=== PATIENT | female | born 1950 | race Caucasian/White ===

== ENCOUNTER → 2017-10-02 13:33 | Outpatient (CLI) | payer MEDICARE, OTHER, SELFPAY | PROVIDERS: Family Provider Internal Medicine; PCP Internal Medicine; Visit Provider Nurse Practitioner Adult Health | DX: D64.9 Anemia, unspecified (principal) | CPT/HCPCS: 36415; 86850; 86900; 86920; 86922 ==

== ENCOUNTER → 2017-10-03 08:26 | Outpatient (CLI) | payer MEDICARE, OTHER, SELFPAY ==
[2017-10-03] VITALS (7 sets, daily range): BP systolic 120–148; BP diastolic 53–68; PULSE 88–94; RESP 16–18; TEMP 36.8–37.4; O2SAT 92–97; BMI 42.0
[2017-10-03] MEDS: Furosemide 20 MG/2 ML VIAL IV (11:59)
== END ==
PROVIDERS: Family Provider Internal Medicine; PCP Internal Medicine; Visit Provider Family Medicine
DX: D64.9 Anemia, unspecified (principal)
CPT/HCPCS: 36415; 36430; 86850; 86900; 86920; 86922; P9016

== ENCOUNTER 2017-11-04 03:02 | Emergency (ER) | payer MEDICARE, OTHER, SELFPAY ==
[2017-11-04 03:03] VITALS: BP 127/59; PULSE 126; RESP 19; TEMP 36.9; O2SAT 94; BMI 28.5
--- NOTE | 2017-11-04 03:24 | ED.VISSUMM ---
- ER Visit Summary Date of Service: 11/04/17 Chief Complaint: Nausea and vomiting. I think I have a UTI History of Present Illness: The patient is a 67 F with a very extensive past medical history including cardiomyopathy with an EF of 20%, insulin-dependent diabetes, CAD with NC and CHF, renal insufficiency anticoagulated secondary to prior DVT. Patient states she has had nausea and vomiting since Saturday evening. No diarrhea. She is having dysuria and thinks she has having a UTI. She was recently in assisted living with her who in the last several weeks. She was just discharged back to her home on Saturday. She was on antibiotic therapy which they stopped. She denies fever. She denies diarrhea or melena. She does have a chronic history of anemia prior transfusions. Physical Examination: Well-appearing older female. Vital signs are stable afebrile. She does not look septic or toxic. She is currently in no acute distress. H EENT exam unremarkable. Neck nontender no lymphadenopathy. Lungs clear to auscultation bilaterally. Heart regular rhythm no murmur. Rate about 100. Abdomen is soft and nontender. Normal bowel sounds. No peritoneal signs. Extremities she has a footdrop on the left with the left lower leg and foot brace. She has a postop shoe on the right foot. Neurologically she is awake and alert. Answering questions and following commands. She is the foot drop on the left lower extremity otherwise is moving the extremities normally. 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 Test Results: CBC showed a chronic anemia with an H&H of 1135. Normal white count. No bands. Chemistries show potassium 3.4. Normal gap. Glucose was only 35 it was rechecked here BG T was 56 the initial one in the ER was 114. She was given something to drink orange juice. Is feeling better. We will recheck and she will be given half amp of D50. She has chronic renal insufficiency her creatinine is 1.68. She is on Coumadin her INR is 5.2. She and I discussed that. Urinalysis shows 10-25 white cells positive nitrates no reds no bacteria culture was sent this will be treated as a UTI. Emergency Department Course and Treatment: Patient will be given IV Zofran and limited IV fluids. P.o. fluid challenge. Screening labs along with urinalysis of obtained. Treatment Plan: Is doing well repeat exam at 04 46. She denied discussed all of her test results. She will watch her blood sugar very closely. Prior to discharge we will recheck a blood sugar and give her half an amp of D50 IV. She also be started on Keflex 4 times a day for her UTI for 10 days. Urine culture was sent. I can be followed up by her primary care physician's office. And she will be given a Zofran home pack and prescription for nausea as needed. She knows to hold her Coumadin the next 2 days have it rechecked on Saturday and restarted depending on her level. Disposition: Discharge Impression: Acute nausea and vomiting Dysuria secondary to UTI Supratherapeutic anticoagulation with an INR of 5.2 History of cardiomyopathy, status post CABG, cardiomyopathy History of insulin diabetes Acute on chronic renal insufficiency This note was generated with [employer] dictation software. It may contain incorrect words, spelling, and punctuation that were not noted in review of the chart prior to signing ED Disposition - Plan for ED Patient: Chief Complaint: Nausea/Vomiting Referrals: Laura Calvillo MD [Primary Care Provider] -
[2017-11-04 03:30] LABS: Bedside Glucose 114 mg/dL (70-110)
[2017-11-04] MEDS: Ondansetron 4 MG/2 ML Vial IV (03:35)
[2017-11-04 03:38] LABS: Absolute Lymphocyte Count 0.76 X10^3/ul (0.83-4.51); Absolute Neutrophil Count 7.8 X10^3/uL (2.0-7.7); Basophil# 0.02 X10^3/uL; Basophil% 0.2 % (0-1); Eosinophil# 0.07 X10^3/uL; Eosinophils% 0.7 % (0-5); Hematocrit 35.3 % (37-47); Hemoglobin 11.3 g/dl (12.0-15.0); Lymphocyte # 0.76 X10^3/ul (4.0); Lymphocyte % 7.9 % (19-41); Mean Corpuscular Hgb 29.4 pg (27.0-32.0); Mean Corpuscular Volume 91.7 fL (81-99); Mean Platelet Vol. 11.1 fl (6.2-12.0); Monocyte# 0.94 X10^3/uL; Monocyte% 9.8 % (0-10); Neutrophil # 7.82 X10^3/uL (2.7-7.7); Neutrophil % 81.2 % (47-70); POSITIVE COUNT NO; POSITIVE DIFFERENTIAL NO; POSITIVE MORPHOLOGY NO; Platelet Count 270 K/mm3 (150-450); RBC Distribution Width CV 15.8 % (11.6-14.6); RBC Distribution Width SD 51.4 fl (35.1-43.9); Red Blood Count 3.85 M/mm3 (4.2-5.4); White Blood Count 9.6 K/mm3 (4.4-11.0)
[2017-11-04 03:43] LABS: Prothrombin Time (Protime)PT. 48.3 SECONDS (11.7-14.9)
[2017-11-04 03:45] LABS: International Normalized Ratio 5.2
--- NOTE | 2017-11-04 03:46 | ED.RN ---
lab called with critical lab results. INR 5.2. Dr. Wilhelm made aware no new orders at this time
[2017-11-04 04:04] LABS: Anion Gap 8 (5-15); BUN 32 mg/dL (7-18); Chloride 106 mmol/L (98-107); Creatinine, Serum 1.68 mg/dL (0.55-1.02); EST Glomerular Filtration Rate 32 mL/min (>60); Est Glom Filt Rate - Afr Amer 39 mL/min (>60); Estimated Creatinine Clearance 28.06 ml/min; Glucose 35 mg/dL (74-106); Potassium 3.4 mmol/L (3.5-5.1); Sodium Level 141 mmol/L (136-145)
[2017-11-04 04:08] LABS: Bacteria 0 SEEN /hpf (None Seen); Mucous, Urine 0 SEEN /hpf (<or=2+); Squamous Epithelial Cells - UA 0 SEEN /hpf (5-10)
--- NOTE | 2017-11-04 04:10 | ED.RN ---
lab called with critical lab results. Glucose 35. POC 114 per nursing staff. Order given to recheck Glucose. POC 56. Dr. Wilhelm made aware. Patient to be treated for hypoglycemia standards
[2017-11-04 04:15] LABS: Color, Urine Yellow (Yellow); Glucose, Dipstick Normal (Normal); Ketone-Dipstick 5 mg/dl (Negative); Leukocyte Esterase-Dipstick 500 /ul (Negative); Nitrite-Dipstick Positive (Negative); Occult Blood-Urine 250 /ul (Negative); Protein-Dipstick 100 mg/dl (Negative); Specific Gravity, Urine 1.015 (1.002-1.030); Urine Bilirubin Dipstick Negative (Negative); Urine Clarity Sl. Cloudy (Clear); Urine Urobilinogen Normal (Normal)
[2017-11-04 04:16] LABS: Bedside Glucose 56 mg/dL (70-110)
[2017-11-04 04:21] LABS: Red Blood Cells-Urine 0-5 SEEN /hpf (0-5); White Blood Cells 10-25 SEEN /hpf (0-5)
--- NOTE | 2017-11-04 04:52 | ED.DEP ---
ED Disposition - Plan for ED Patient: Disposition: Home or Assisted Living Chief Complaint: Nausea/Vomiting Instructions: ED Nausea Vomiting, ED UTI Cystitis Female Prescriptions: Ondansetron [Zofran Odt] 4 mg PO Q8H PRN PRN #10 tab PRN Reason: Nausea Cephalexin [Keflex] 500 mg PO Q6 #40 cap Referrals: Laura Calvillo MD [Primary Care Provider] - Additional Instructions: Zofran as needed for nausea. You may either swallow the pill or let it dissolve underneath her tongue. Keflex 1 pill 4 times a day for 10 days for the urinary tract infection. A urine culture was sent and should return in the next 48 hours. We will notify you if the culture results the antibiotic to be changed or not. Follow-up your primary care physician or return to ER feeling worse. Watch her blood sugars closely. They are running low tonight. Check it prior to going to bed this morning. Over the next 2 days better let it run slightly higher than low. Plenty of fluids and rest. Your Coumadin level is too high. It is at 5.2. We will hold your Coumadin dose both today Saturday and tomorrow Saturday. You need to have your level rechecked on Saturday morning and your doctor can restart it once they see with the new level is on Saturday.
[2017-11-04 04:56] LABS: Bedside Glucose 58 mg/dL (70-110)
[2017-11-04] MEDS: Ondansetron ODT 4 MG Tablet PO (05:02)
[2017-11-04] MEDS: Cephalexin 250 MG Capsule 500 MG PO (05:02)
[2017-11-04] MEDS: Dextrose 50%-Water 25 GM/50 ML DISP.SYRIN IV (05:02)
[2017-11-04 05:13] VITALS: BP 141/53; PULSE 118; RESP 15; O2SAT 91
== END 2017-11-04 05:20 | disposition home or self-care (01) ==
PROVIDERS: Emergency Provider Emergency Medicine; Family Provider Internal Medicine; PCP Internal Medicine
DX: N39.0 Urinary tract infection, site not specified (principal); R11.2 Nausea with vomiting, unspecified
CPT/HCPCS: 80048; 81001; 82962; 85025; 85610; 87077; 87086; 87088; 87186; 96374; 96375; 99285; J7030; J7040; P9612; A4216; J2405

== ENCOUNTER 2017-11-06 19:15 | Inpatient (IN) | payer MEDICARE, OTHER, SELFPAY ==
[2017-11-06] VITALS (7 sets, daily range): BP systolic 101–127; BP diastolic 48–68; PULSE 93–124; RESP 18–22; TEMP 37.1–38.2; O2SAT 90–97; BMI 25.7; BMI 27.7
[2017-11-06 19:36] LABS: Bedside Glucose 101 mg/dL (70-110)
[2017-11-06] MEDS: proMETHazine 25 MG/ML Syringe 6.25 MG IV (20:25)
[2017-11-06] MEDS: 0.9% Normal Saline 1,000 ML 150 ML IV (20:25)
[2017-11-06 20:40] LABS: Absolute Lymphocyte Count 0.09 X10^3/ul (0.83-4.51); Absolute Neutrophil Count 6.4 X10^3/uL (2.0-7.7); Eosinophil# 0.01 X10^3/uL; Eosinophils% 0.2 % (0-5); Lymphocyte # 0.09 X10^3/ul (4.0); Lymphocyte % 1.4 % (19-41); Mean Corp Hgb Conc 30.6 g/gl (32-36); Mean Corpuscular Hgb 28.4 pg (27.0-32.0); Mean Corpuscular Volume 92.8 fL (81-99); Mean Platelet Vol. 10.7 fl (6.2-12.0); Monocyte# 0.01 X10^3/uL; Monocyte% 0.2 % (0-10); Neutrophil # 6.38 X10^3/uL (2.7-7.7); Platelet Count 225 K/mm3 (150-450); RBC Distribution Width CV 16.2 % (11.6-14.6); RBC Distribution Width SD 54.4 fl (35.1-43.9); Red Blood Count 3.88 M/mm3 (4.2-5.4); White Blood Count 6.5 K/mm3 (4.4-11.0)
[2017-11-06 20:41] LABS: Differential Indicated SCAN CRITERIA MET; POSITIVE COUNT NO; POSITIVE DIFFERENTIAL YES; POSITIVE MORPHOLOGY NO
[2017-11-06 20:43] LABS: International Normalized Ratio 2.5; Partial Thromboplast Time 27.2 Seconds (24.1-36.2); Prothrombin Time (Protime)PT. 26.7 SECONDS (11.7-14.9)
[2017-11-06 20:50] LABS: ALB/GLOB Ratio 0.5 RATIO (0.9-2.4); AST(SGOT) 45 U/L (15-37); Alanine Aminotransfer ALT/SGPT 36 U/L (13-56); Albumin, Serum 2.8 g/dL (3.2-5.0); Alkaline Phosphatase 112 U/L (45-117); Anion Gap 8 (5-15); BUN 37 mg/dL (7-18); BUN/Creat Ratio 21.8 RATIO (10-20); Calcium,Total 8.4 mg/dL (8.5-10.1); Chloride 107 mmol/L (98-107); EST Glomerular Filtration Rate 32 mL/min (>60); Est Glom Filt Rate - Afr Amer 39 mL/min (>60); Estimated Creatinine Clearance 27.73 ml/min; Globulin 5.9 g/dL (2.2-4.2); Glucose 96 mg/dL (74-106); Potassium 3.5 mmol/L (3.5-5.1); Protein, Total 8.7 g/dL (6.4-8.2); Sodium Level 142 mmol/L (136-145)
[2017-11-06 21:00] LABS: Lactic Acid 1.8 mmol/L (0.4-2.0)
--- NOTE | 2017-11-06 21:27 | PCM.HP.STD ---
Problem List (1) Sepsis Status: Acute Qualifiers: Sepsis type: sepsis due to unspecified organism Qualified Code(s): A41.9 - Sepsis, unspecified organism (2) UTI (urinary tract infection) Status: Acute Qualifiers: Urinary tract infection type: site unspecified (3) Steroid dependent Status: Chronic (4) Cardiac arrest, cause unspecified Status: Resolved (5) PVD (peripheral vascular disease) Status: Chronic (6) Raynaud's phenomenon Status: Chronic Qualifiers: Raynaud?s-associated gangrene presence: without gangrene Qualified Code(s): I73.00 - Raynaud's syndrome without gangrene (7) Insulin dependent diabetes mellitus Status: Chronic (8) Pulmonary hypertension Status: Chronic (9) Congestive heart failure with LV diastolic dysfunction, NYHA class 3 Status: Chronic (10) Moderate mitral regurgitation by prior echocardiogram Status: Chronic Comment: on ECHO in December of 2014 (11) History of thyroidectomy Status: Chronic (12) Acquired hypothyroidism Status: Chronic Comment: S/P thyroidectomy for hyperthyroidism (13) Osteoporosis Status: Chronic Qualifiers: Osteoporosis type: unspecified Presence of current pathological fracture: unspecified Qualified Code(s): M81.0 - Age-related osteoporosis without current pathological fracture (14) Dermatomyositis Status: Chronic (15) Iliac artery thrombosis, bilateral Status: Chronic Comment: S/P BL iliac stents (16) History of hepatitis Status: Chronic Comment: does not know what type (17) Chronic renal failure, stage 3 (moderate) Status: Chronic (18) Anemia Status: Chronic Qualifiers: Anemia type: unspecified type Qualified Code(s): D64.9 - Anemia, unspecified (19) Benign essential hypertension Status: Chronic History of Present Illness Date of Admission: 11/06/17 Chief Complaint: Nausea, emesis, malaise The patient is a 67 y/o F from SNF w/ PMHx: Hypothyroidism s/p thyroidectomy (Hyperthyroidism), HTN, HLD, Chronic Normocytic Anemia requiring PRBC administration (Following w/ Dr. Bowden), Diastolic CHF, CKD stage III, Diabetes mellitus type II, PVD, OA, Steroid dependency, s/p CABG w/ prior cardiac arrest history, 09/16-09/18/16 admission for Sepsis secondary to ESBL UTI w/ notable resistance patterns (d/c to facility at that time on ertapenem per ID recommendation) who presents to the [facility] ED 11/06/17 with recent Dx in the ED UTI, UCx returned w/ Proteus UTI w/ sensitivities to only ertapenem, gentamicin, zosyn and tobramycin with discharge at that time on keflex with ongoing intractable nausea, emesis, malaise, fever and chills ongoing for the last week, worsening. She notes recent of her . She notes she is not in the SNF now since her husbands . She notes In the ED work-up included T 100.8, HR 124-->109, BP 108/51, RR 20, 90% on RA-->93% on 2.5L NC, CBC w/ WBC 6.5, Hgb 11, Plts 225 without marked shift, INR 2.5, CMP w/ BUN/Cr 37/1.70, LA 1.8, Bld Cx x 2 pending. In the ED patient administered ertapenem, phenergan, NS. Past Medical History Past Medical History (Chronic Problems): Chronic Problems Steroid dependent (Chronic) PVD (peripheral vascular disease) (Chronic) Raynaud's phenomenon (Chronic) Insulin dependent diabetes mellitus (Chronic) Pulmonary hypertension (Chronic) Congestive heart failure with LV diastolic dysfunction, NYHA class 3 (Chronic) Moderate mitral regurgitation by prior echocardiogram (Chronic) on ECHO in December of 2014 Non-healing ulcer of left foot (Chronic) left foot History of thyroidectomy (Chronic) Acquired hypothyroidism (Chronic) S/P thyroidectomy for hyperthyroidism Osteoporosis (Chronic) Pancreatic cyst (Chronic) Diabetes mellitus type I (Chronic) Dermatomyositis (Chronic) Iliac artery thrombosis, bilateral (Chronic) S/P BL iliac stents History of hepatitis (Chronic) does not know what type Chronic renal failure, stage 3 (moderate) (Chronic) Anemia (Chronic) Benign essential hypertension (Chronic) Allergies sulfamethoxazole [From Bactrim] Allergy (Verified 11/04/17 03:03) Rash trimethoprim [From Bactrim] Allergy (Verified 11/04/17 03:03) Rash hydrocodone [From Vicodin] Adverse Reaction (Verified 11/04/17 03:03) Vomiting nafcillin Adverse Reaction (Verified 11/04/17 03:03) Vomiting Home Medications: Ambulatory Orders Medication Instructions Recorded Aspirin [Aspirin, Baby] 81 mg PO BREAKFAST 05/04/13 Ezetimibe [Zetia] 10 mg PO QHS 05/04/13 Levothyroxine [Synthroid] 100 mcg PO DAILY 05/04/13 Metoprolol(XL)Succ [Toprol Xl 25 mg PO DAILY 05/04/13 (Beta Karen)] Multivitamins,Therapeutic 1 tablet PO DAILY 05/04/13 [Multivitamin] Omeprazole [Prilosec] 20 mg PO DAILY 05/04/13 Warfarin [Coumadin] 2 mg PO DAILY 05/04/13 Insulin Regular, Human [Novolin R] 0 unit SC TIDCM 04/18/16 Folic Acid 100 mcg PO DAILY 06/03/16 MethylPREDNISolone 6 mg PO DAILY 06/03/16 Ondansetron [Zofran Odt] 4 mg PO Q8H PRN PRN #10 tablet 06/03/16 Sennosides/Docusate Sodium 1 tab PO BID 06/03/16 [Sennalax-S Tablet] Insulin Glargine,Hum.rec.anlog 40 units SQ DAILY 09/12/16 [Lantus] Cephalexin [Keflex] 500 mg PO Q6 #40 cap 11/04/17 Ondansetron [Zofran Odt] 4 mg PO Q8H PRN PRN #10 tab 11/04/17 Surgical History: - - Orthopedic surgery R ankle after fracture, BL iliac stents for iliac artery thrombosis, multiple finger and toe amputations, thyroidectomy, s/p CABG. Psychiatric History: No pertinent psych hx HEALTH THERAPIST History: No pertinent HEALTH THERAPIST history Lives: Alone Smoking Status: Never smoker Tobacco Use: Non-smoker Alcohol: None Drugs: None - *Family History Paternal History Items: Cancer - father at 79 with CA - unknow primary Maternal History Items: Heart Disease - mother at the age of 80 with MN and CHF Sibling History Items: Diabetes Review of Systems Constitutional: Reports: Anorexia, Chills, Fever, Malaise, Weakness, Fatigue. Denies: Weight Change HEENT: Denies: Head Aches, Sinus Congestion, Sinus Drainage Cardiovascular: Denies: Chest Pain, Palpitations Respiratory: Denies: Cough, Shortness of breath at rest, Sputum production Gastrointestinal: Reports: Abdominal Pain, Nausea, Vomiting Genitourinary: Reports: Dysuria, Frequency, Urgency Musculoskeletal: Denies: Joint Pain, Joint Tenderness Skin: Denies: Rash, Wounds Neurological: Denies: Numbness, Tingling, Focal weakness Psychiatric: Denies: Anxiety, Depression, Homicidal Ideations, Suicidal Ideations Hematologic/ Lymphatic: Reports: Anemia, Easy Bruising, Easy Bleeding VTE Information - Inpt Only VTE Present on Admission: No VTE Mechan Device Prophylaxis: SCD's VTE Pharm Prophylaxis ordered?: No Reason prophylaxis not ordered:: Treatment Not Indicated Patient Problems: Active and Suspected Problems Sepsis (Acute) UTI (urinary tract infection) (Acute) Subjective: Seated upright in the ED bed, fatigued, ill appearing. Objective: Physical Examination: General: awake, alert, oriented x 3, very fatigued, ill appearing, cooperative, seated upright in the ED bed. Skin: normal color, turgor, no icterus, cyanosis except occasional extremity various staged ecchymoses. HEENT: AT/NC, EOMI, PERRLA, dry MM, no carotid bruits or JVD noted. Lungs: Diminished BS BL, > bases, no rales, ronchi or wheezing. Heart: Tachycardic with regular rhythm; no gallop, rub audible. Abdomen: soft, mild suprapubic TTP otherwise NTTP, ND, hypoactive BS, no HSM. Extremities: no cyanosis, clubbing, or edema. Neurological: patient awake, alert, oriented x 3; cognitive function decreased secondary to acute presentation; pupils equally reactive to light and accomodation; cranial nerves II-XII grossly normal, moving all 4 extremities, no focal deficits, strength severely globally decreased secondary to acute presentation, fatigue, lethargic. Psychiatric: affect appears flat, no acute evidence of depressive or anxiety feelings. - Physical Exam Vital Signs Temp Pulse Resp BP Pulse Ox 98.9 F 109 H 18 127/56 H 93 11/06/17 20:05 11/06/17 20:01 11/06/17 20:01 11/06/17 20:01 11/06/17 20:01 Oxygen Flow Rate (L/min) 2.5 Oxygen Delivery Method Nasal Cannula Weight: 150 lb Body Mass Index (BMI) 25.7 Finger Stick Blood Glucose 101 Laboratory Tests Past 24 Hrs 11/06/17 11/06/17 11/06/17 20:13 20:13 20:13 WBC 6.5 RBC 3.88 L Hgb 11.0 L Hct 36.0 L MCV 92.8 MCH 28.4 MCHC 30.6 L RDW 16.2 H RDW Differential 54.4 H Plt Count 225 MPV 10.7 Immature Gran % (Auto) 0.200 Neut % (Auto) 98.0 H Lymph % (Auto) 1.4 L [place] % (Auto) 0.2 Eos % (Auto) 0.2 Baso % (Auto) 0.0 Absolute Neuts (auto) 6.4 Absolute Lymphs (auto) 0.09 L Total Counted Not Reportable Differential Comment PT 26.7 H INR 2.5 APTT 27.2 Sodium 142 Potassium 3.5 Chloride 107 Carbon Dioxide 27.0 Anion Gap 8 BUN 37 H Creatinine 1.70 H Estim Creat Clear Calc 27.73 Est GFR (MDRD) Af Amer 39 L Est GFR (MDRD) Non-Af 32 L BUN/Creatinine Ratio 21.8 H Glucose 96 Lactic Acid Calcium 8.4 L Total Bilirubin 0.30 AST 45 H ALT 36 Alkaline Phosphatase 112 Total Protein 8.7 H Albumin 2.8 L Globulin 5.9 H Albumin/Globulin Ratio 0.5 L 11/06/17 20:13 WBC RBC Hgb Hct MCV MCH MCHC RDW RDW Differential Plt Count MPV Immature Gran % (Auto) Neut % (Auto) Lymph % (Auto) [place] % (Auto) Eos % (Auto) Baso % (Auto) Absolute Neuts (auto) Absolute Lymphs (auto) Total Counted Differential Comment PT INR APTT Sodium Potassium Chloride Carbon Dioxide Anion Gap BUN Creatinine Estim Creat Clear Calc Est GFR (MDRD) Af Amer Est GFR (MDRD) Non-Af BUN/Creatinine Ratio Glucose Lactic Acid 1.8 Calcium Total Bilirubin AST ALT Alkaline Phosphatase Total Protein Albumin Globulin Albumin/Globulin Ratio POC Glucose 11/06/17 19:31 POC Glucose 101 Assessment/Plan Active and Suspected Problems Sepsis (Acute) UTI (urinary tract infection) (Acute) The patient is a 67 y/o F from SNF w/ PMHx: Hypothyroidism s/p thyroidectomy , HTN, HLD, Chronic Normocytic Anemia requiring PRBC administration, Diastolic CHF, CKD stage III, Diabetes mellitus type II, PVD, OA, Steroid dependency, s/p CABG w/ prior cardiac arrest history who presents to the [facility] ED 11/06/17 with recent Dx in the ED UTI, UCx returned w/ Proteus UTI w/ sensitivities to only ertapenem, gentamicin, zosyn and tobramycin with discharge at that time on keflex with ongoing intractable nausea, emesis, malaise, fever and chills ongoing for the last week, worsening. (1) Acute Sepsis secondary to Acute Complicated Proteus UTI, failed outpatient abx therapy secondary to resistance: Will admit to [place], failed outpatient therapies secondary to narrow sensitivities, UCx repeat and UA as noted already obtained on 11/04/17 and resulted, continue IVFs, monitor I/Os, continue IV ertapenem. Bld cx x 2 obtained in the ED. ID consulted, pending. (2) Acute kidney injury on CKD stage III: Secondary to GI losses, acute UTI. Admission BUN/Cr 37/1.70, prior baseline creatinine noted to be 1.2-1.3. Will hydrate, hold nephrotoxic medications and repeat chemistry in AM. (3) Hypothyroidism s/p thyroidectomy (Hyperthyroidism): Continue home synthroid regimen. (4) CAD, PAD: s/p CABG, s/p cardiac arrest, continue asa, zetia, BB. Maintained on coumadin, trending INR. (4) Chronic Normocytic Anemia requiring PRBC administration: Following w/ Dr. Bowden, admission Hgb 11, baseline 9-10 range, trend. (5) Diastolic CHF: Maintain on asa, zetia, BB. Not on ACEI or statin, following w/ cardiology. (6) Diabetes mellitus type II: Hold oral home regimen, continue home insulin regimen, clears w/ ADAT to ADA diet, accu checks w/ ISS. (7) Dermatomyositis w/ Steroid dependency: Maintain on home steroid daily regimen, given lower chronic dose, defer stress dosing. (8) GERD: PPI. (9) DVT prophylaxis: SCDs, coumadin w/ INR trending. Code Visit Inpatient E&M: 54108 Init Hosp L3
--- NOTE | 2017-11-06 21:38 | HP.PCM_ITS ---
Problem List (1) Sepsis Status: Acute Qualifiers: Sepsis type: sepsis due to unspecified organism Qualified Code(s): A41.9 - Sepsis, unspecified organism (2) UTI (urinary tract infection) Status: Acute Qualifiers: Urinary tract infection type: site unspecified (3) Steroid dependent Status: Chronic (4) Cardiac arrest, cause unspecified Status: Resolved (5) PVD (peripheral vascular disease) Status: Chronic (6) Raynaud's phenomenon Status: Chronic Qualifiers: Raynaud?s-associated gangrene presence: without gangrene Qualified Code(s) : I73.00 - Raynaud's syndrome without gangrene (7) Insulin dependent diabetes mellitus Status: Chronic (8) Pulmonary hypertension Status: Chronic (9) Congestive heart failure with LV diastolic dysfunction, NYHA class 3 Status: Chronic (10) Moderate mitral regurgitation by prior echocardiogram Status: Chronic Comment: on ECHO in December of 2014 (11) History of thyroidectomy Status: Chronic (12) Acquired hypothyroidism Status: Chronic Comment: S/P thyroidectomy for hyperthyroidism (13) Osteoporosis Status: Chronic Qualifiers: Osteoporosis type: unspecified Presence of current pathological fracture: unspecified Qualified Code(s): M81.0 - Age-related osteoporosis without current pathological fracture (14) Dermatomyositis Status: Chronic (15) Iliac artery thrombosis, bilateral Status: Chronic Comment: S/P BL iliac stents (16) History of hepatitis Status: Chronic Comment: does not know what type (17) Chronic renal failure, stage 3 (moderate) Status: Chronic (18) Anemia Status: Chronic Qualifiers: Anemia type: unspecified type Qualified Code(s): D64.9 - Anemia, unspecified (19) Benign essential hypertension Status: Chronic History of Present Illness Date of Admission: 11/06/17 Chief Complaint: Nausea, emesis, malaise The patient is a 67 y/o F from SNF w/ PMHx: Hypothyroidism s/p thyroidectomy ( Hyperthyroidism), HTN, HLD, Chronic Normocytic Anemia requiring PRBC administration (Following w/ Dr. Bowden), Diastolic CHF, CKD stage III, Diabetes mellitus type II, PVD, OA, Steroid dependency, s/p CABG w/ prior cardiac arrest history, 09/16-09/18/16 admission for Sepsis secondary to ESBL UTI w/ notable resistance patterns (d/c to facility at that time on ertapenem per ID recommendation) who presents to the [facility] ED 11/06/17 with recent Dx in the ED UTI , UCx returned w/ Proteus UTI w/ sensitivities to only ertapenem, gentamicin, zosyn and tobramycin with discharge at that time on keflex with ongoing intractable nausea, emesis, malaise, fever and chills ongoing for the last week , worsening. She notes recent of her . She notes she is not in the SNF now since her husbands . She notes In the ED work-up included T 100.8, HR 124-->109, BP 108/51, RR 20, 90% on RA-->93% on 2.5L NC, CBC w/ WBC 6.5, Hgb 11, Plts 225 without marked shift, INR 2.5, CMP w/ BUN/Cr 37/1.70, LA 1.8, Bld Cx x 2 pending. In the ED patient administered ertapenem, phenergan, NS. Past Medical History Past Medical History (Chronic Problems): Chronic Problems Steroid dependent (Chronic) PVD (peripheral vascular disease) (Chronic) Raynaud's phenomenon (Chronic) Insulin dependent diabetes mellitus (Chronic) Pulmonary hypertension (Chronic) Congestive heart failure with LV diastolic dysfunction, NYHA class 3 (Chronic) Moderate mitral regurgitation by prior echocardiogram (Chronic) on ECHO in December of 2014 Non-healing ulcer of left foot (Chronic) left foot History of thyroidectomy (Chronic) Acquired hypothyroidism (Chronic) S/P thyroidectomy for hyperthyroidism Osteoporosis (Chronic) Pancreatic cyst (Chronic) Diabetes mellitus type I (Chronic) Dermatomyositis (Chronic) Iliac artery thrombosis, bilateral (Chronic) S/P BL iliac stents History of hepatitis (Chronic) does not know what type Chronic renal failure, stage 3 (moderate) (Chronic) Anemia (Chronic) Benign essential hypertension (Chronic) Allergies sulfamethoxazole [From Bactrim] Allergy (Verified 11/04/17 03:03) Rash trimethoprim [From Bactrim] Allergy (Verified 11/04/17 03:03) Rash hydrocodone [From Vicodin] Adverse Reaction (Verified 11/04/17 03:03) Vomiting nafcillin Adverse Reaction (Verified 11/04/17 03:03) Vomiting Home Medications: Ambulatory Orders Medication Instructions Recorded Aspirin [Aspirin, Baby] 81 mg PO BREAKFAST 05/04/13 Ezetimibe [Zetia] 10 mg PO QHS 05/04/13 Levothyroxine [Synthroid] 100 mcg PO DAILY 05/04/13 Metoprolol(XL)Succ [Toprol Xl 25 mg PO DAILY 05/04/13 (Beta Karen)] Multivitamins,Therapeutic 1 tablet PO DAILY 05/04/13 [Multivitamin] Omeprazole [Prilosec] 20 mg PO DAILY 05/04/13 Warfarin [Coumadin] 2 mg PO DAILY 05/04/13 Insulin Regular, Human [Novolin R] 0 unit SC TIDCM 04/18/16 Folic Acid 100 mcg PO DAILY 06/03/16 MethylPREDNISolone 6 mg PO DAILY 06/03/16 Ondansetron [Zofran Odt] 4 mg PO Q8H PRN PRN #10 tablet 06/03/16 Sennosides/Docusate Sodium 1 tab PO BID 06/03/16 [Sennalax-S Tablet] Insulin Glargine,Hum.rec.anlog 40 units SQ DAILY 09/12/16 [Lantus] Cephalexin [Keflex] 500 mg PO Q6 #40 cap 11/04/17 Ondansetron [Zofran Odt] 4 mg PO Q8H PRN PRN #10 tab 11/04/17 Surgical History: - - Orthopedic surgery R ankle after fracture, BL iliac stents for iliac artery thrombosis, multiple finger and toe amputations, thyroidectomy, s/p CABG. 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 Denies: Weight Change HEENT: Denies: Head Aches, Sinus Congestion, Sinus Drainage Cardiovascular: Denies: Chest Pain, Palpitations Respiratory: Denies: Cough, Shortness of breath at rest, Sputum production Gastrointestinal: Reports: Abdominal Pain, Nausea, Vomiting Genitourinary: Reports: Dysuria, Frequency, Urgency Musculoskeletal: Denies: Joint Pain, Joint Tenderness Skin: Denies: Rash, Wounds Neurological: Denies: Numbness, Tingling, Focal weakness Psychiatric: Denies: Anxiety, Depression, Homicidal Ideations, Suicidal Ideations Hematologic/ Lymphatic: Reports: Anemia, Easy Bruising, Easy Bleeding VTE Information - Inpt Only VTE Present on Admission: No VTE Mechan Device Prophylaxis: SCD's VTE Pharm Prophylaxis ordered?: No Reason prophylaxis not ordered:: Treatment Not Indicated Patient Problems: Active and Suspected Problems Sepsis (Acute) UTI (urinary tract infection) (Acute) Subjective: Seated upright in the ED bed, fatigued, ill appearing. Objective: Physical Examination: General: awake, alert, oriented x 3, very fatigued, ill appearing, cooperative, seated upright in the ED bed. Skin: normal color, turgor, no icterus, cyanosis except occasional extremity various staged ecchymoses. HEENT: AT/NC, EOMI, PERRLA, dry MM, no carotid bruits or JVD noted. Lungs: Diminished BS BL, > bases, no rales, ronchi or wheezing. Heart: Tachycardic with regular rhythm; no gallop, rub audible. Abdomen: soft, mild suprapubic TTP otherwise NTTP, ND, hypoactive BS, no HSM. Extremities: no cyanosis, clubbing, or edema. Neurological: patient awake, alert, oriented x 3; cognitive function decreased secondary to acute presentation; pupils equally reactive to light and accomodation; cranial nerves II-XII grossly normal, moving all 4 extremities, no focal deficits, strength severely globally decreased secondary to acute presentation, fatigue, lethargic. Psychiatric: affect appears flat, no acute evidence of depressive or anxiety feelings. - Physical Exam Vital Signs Temp Pulse Resp BP Pulse Ox 98.9 F 109 H 18 127/56 H 93 11/06/17 20:05 11/06/17 20:01 11/06/17 20:01 11/06/17 20:01 11/06/17 20:01 Oxygen Flow Rate (L/min) 2.5 Oxygen Delivery Method Nasal Cannula Weight: 150 lb Body Mass Index (BMI) 25.7 Finger Stick Blood Glucose 101 Laboratory Tests Past 24 Hrs 11/06/17 11/06/17 11/06/17 20:13 20:13 20:13 WBC 6.5 RBC 3.88 L Hgb 11.0 L Hct 36.0 L MCV 92.8 MCH 28.4 MCHC 30.6 L RDW 16.2 H RDW Differential 54.4 H Plt Count 225 MPV 10.7 Immature Gran % (Auto) 0.200 Neut % (Auto) 98.0 H Lymph % (Auto) 1.4 L Casey % (Auto) 0.2 Eos % (Auto) 0.2 Baso % (Auto) 0.0 Absolute Neuts (auto) 6.4 Absolute Lymphs (auto) 0.09 L Total Counted Not Reportable Differential Comment PT 26.7 H INR 2.5 APTT 27.2 Sodium 142 Potassium 3.5 Chloride 107 Carbon Dioxide 27.0 Anion Gap 8 BUN 37 H Creatinine 1.70 H Estim Creat Clear Calc 27.73 Est GFR (MDRD) Af Amer 39 L Est GFR (MDRD) Non-Af 32 L BUN/Creatinine Ratio 21.8 H Glucose 96 Lactic Acid Calcium 8.4 L Total Bilirubin 0.30 AST 45 H ALT 36 Alkaline Phosphatase 112 Total Protein 8.7 H Albumin 2.8 L Globulin 5.9 H Albumin/Globulin Ratio 0.5 L 11/06/17 20:13 WBC RBC Hgb Hct MCV MCH MCHC RDW RDW Differential Plt Count MPV Immature Gran % (Auto) Neut % (Auto) Lymph % (Auto) Casey % (Auto) Eos % (Auto) Baso % (Auto) Absolute Neuts (auto) Absolute Lymphs (auto) Total Counted Differential Comment PT INR APTT Sodium Potassium Chloride Carbon Dioxide Anion Gap BUN Creatinine Estim Creat Clear Calc Est GFR (MDRD) Af Amer Est GFR (MDRD) Non-Af BUN/Creatinine Ratio Glucose Lactic Acid 1.8 Calcium Total Bilirubin AST ALT Alkaline Phosphatase Total Protein Albumin Globulin Albumin/Globulin Ratio POC Glucose 11/06/17 19:31 POC Glucose 101 Assessment/Plan Active and Suspected Problems Sepsis (Acute) UTI (urinary tract infection) (Acute) The patient is a 67 y/o F from SNF w/ PMHx: Hypothyroidism s/p thyroidectomy , HTN, HLD, Chronic Normocytic Anemia requiring PRBC administration, Diastolic CHF , CKD stage III, Diabetes mellitus type II, PVD, OA, Steroid dependency, s/p CABG w/ prior cardiac arrest history who presents to the [facility] ED 11/06/17 with recent Dx in the ED UTI, UCx returned w/ Proteus UTI w/ sensitivities to only ertapenem, gentamicin, zosyn and tobramycin with discharge at that time on keflex with ongoing intractable nausea, emesis, malaise, fever and chills ongoing for the last week, worsening. (1) Acute Sepsis secondary to Acute Complicated Proteus UTI, failed outpatient abx therapy secondary to resistance: Will admit to [place], failed outpatient therapies secondary to narrow sensitivities, UCx repeat and UA as noted already obtained on 11/04/17 and resulted, continue IVFs, monitor I/Os, continue IV ertapenem. Bld cx x 2 obtained in the ED. ID consulted, pending. (2) Acute kidney injury on CKD stage III: Secondary to GI losses, acute UTI. Admission BUN/Cr 37/1.70, prior baseline creatinine noted to be 1.2-1.3. Will hydrate, hold nephrotoxic medications and repeat chemistry in AM. (3) Hypothyroidism s/p thyroidectomy (Hyperthyroidism): Continue home synthroid regimen. (4) CAD, PAD: s/p CABG, s/p cardiac arrest, continue asa, zetia, BB. Maintained on coumadin, trending INR. (4) Chronic Normocytic Anemia requiring PRBC administration: Following w/ Dr. Bowden, admission Hgb 11, baseline 9-10 range, trend. (5) Diastolic CHF: Maintain on asa, zetia, BB. Not on ACEI or statin, following w/ cardiology. (6) Diabetes mellitus type II: Hold oral home regimen, continue home insulin regimen, clears w/ ADAT to ADA diet, accu checks w/ ISS. (7) Dermatomyositis w/ Steroid dependency: Maintain on home steroid daily regimen, given lower chronic dose, defer stress dosing. (8) GERD: PPI. (9) DVT prophylaxis: SCDs, coumadin w/ INR trending. Code Visit Inpatient E&M: 50188 Init Hosp L3
--- NOTE | 2017-11-06 23:00 | NURSING ---
Patient arrived to floor at 2300, slurring words and having chills. Blood sugar checked, 64. Patient attempted to drink sprite but immediately became nauseated and threw up. D50 given. Blood sugar rechecked 15m later 149. Will notify physician, continuing to monitor patient.
[2017-11-06] MEDS: Dextrose 50%-Water 25 GM/50 ML DISP.SYRIN IV (23:12)
[2017-11-06 23:18] LABS: Magnesium 1.8 mg/dL (1.6-2.6)
[2017-11-06 23:30] LABS: Bedside Glucose 149 mg/dL (70-110)
[2017-11-06 23:30] LABS: Bedside Glucose 64 mg/dL (70-110)
--- NOTE | 2017-11-06 23:33 | ED.VISSUMM ---
- ER Visit Summary Date of Service: 11/06/17 Chief Complaint: Vomiting History of Present Illness: The patient is a 67 F who reports that she was seen in the emergency department 2 days ago and was placed on Keflex for UTI. She reports that tonight approximately 545 she began vomiting. She is vomited 4-5 times. No blood or emesis. She reports that she had crampy diffuse abdominal pain that was 9 out of 10 at worst and is 2 out of 10 currently. Is worsened by nothing and relieved by nothing. She denies any diarrhea. Her last bowel movement was yesterday. She has had no melena or hematochezia. She has had frequent urination. Also complains of subjective fever and chills. Physical Examination: Vitals: 100.8, 108/51, 124, 20, 90% on room air which is hypoxic. General: Well-nourished and well-developed. Head: Normocephalic atraumatic. Neck: Supple, no lymphadenopathy. No JVD. Nontender. Cardiovascular: Tachycardic irregular rhythm. No murmurs. Respiratory: No respiratory distress. Clear to auscultation bilaterally. Abdominal: Soft, nontender, nondistended, normal bowel sounds. No guarding, rebound, or peritoneal signs. Back: Nontender. Extremities: Nontender, no edema. Skin: Normal color, no rash. Neurologic: Alert and oriented ?3. Cranial nerves II through XII are intact. Normal strength and sensation. Psych: Normal affect. Test Results: CBC is marked for an H&H of 11.0 and 36.0 with 98 segmented neutrophils and 1.4 lymphocytes. Chem-7 is remarkable for a calcium of 8.4, BUN 37, creatinine 1.7. Of these are marked for total protein 8.7, albumin of 2.8, globulin 5.9. INR is 2.5. Lactic acid is 1.8. Patient's urinalysis on 11 04 was positive and was sent for culture. This has grown Proteus that is only sensitive to ertapenem, gentamicin, tobramycin, and Zosyn. It is resistant to cephalosporins. This was not repeated. Emergency Department Course and Treatment: Patient was given a dose of ertapenem IV and is resting comfortably. Treatment Plan: Patient was discussed with Dr. Cobos. She will be admitted to the hospital for further evaluation and treatment. Disposition: Admitted in serious condition. Impression: 1. Sepsis. 2. UTI due to Proteus. 3. Coumadin coagulopathy. This note was generated with [employer] dictation software. It may contain incorrect words, spelling, and punctuation that were not noted in review of the chart prior to signing ED Disposition - Plan for ED Patient: Disposition: Acute Care Hospital [facility] Chief Complaint: Nausea/Vomiting
[2017-11-07] VITALS (13 sets, daily range): BP systolic 98–124; BP diastolic 48–59; PULSE 77–104; RESP 16–18; TEMP 36.8–37.7; O2SAT 94–99
[2017-11-07] MEDS: Dextrose 5%/0.9% NaCl 1,000 ML 125 ML IV ×2 (00:02→07:55)
[2017-11-07] MEDS: proMETHazine 25 MG/ML Syringe 12.5 MG IV (00:23)
[2017-11-07] MEDS: 0.9% NaCl Peripheral Flush Adult/Peds IV ×4 (00:24→21:31)
--- NOTE | 2017-11-07 02:00 | NURSING ---
Patient attempted to use bedpan, no void. Bladder scan 397. Will notify Dr. Cobos.
[2017-11-07 02:11] LABS: Bedside Glucose 191 mg/dL (70-110)
[2017-11-07 06:30] LABS: Bedside Glucose 273 mg/dL (70-110)
[2017-11-07 07:43] LABS: International Normalized Ratio 2.5; Prothrombin Time (Protime)PT. 27.5 SECONDS (11.7-14.9)
[2017-11-07 08:04] LABS: Anion Gap 10 (5-15); BUN 38 mg/dL (7-18); BUN/Creat Ratio 19.1 RATIO (10-20); Calcium,Total 7.6 mg/dL (8.5-10.1); Chloride 107 mmol/L (98-107); Creatinine, Serum 1.99 mg/dL (0.55-1.02); EST Glomerular Filtration Rate 27 mL/min (>60); Est Glom Filt Rate - Afr Amer 32 mL/min (>60); Estimated Creatinine Clearance 23.69 ml/min; Glucose 298 mg/dL (74-106); Potassium 3.9 mmol/L (3.5-5.1); Sodium Level 141 mmol/L (136-145)
[2017-11-07 08:36] LABS: Platelet Morphology CLUMPED
[2017-11-07 08:39] LABS: Platelet Estimate ADEQUATE (ADEQ)
[2017-11-07 08:40] LABS: Absolute Lymphocyte Count 0.46 X10^3/ul (0.83-4.51); Absolute Neutrophil Count 20.9 X10^3/uL (2.0-7.7); Basophil# 0.02 X10^3/uL; Basophil% 0.1 % (0-1); Eosinophil# 0.02 X10^3/uL; Eosinophils% 0.1 % (0-5); Hematocrit 29.7 % (37-47); Hemoglobin 9.1 g/dl (12.0-15.0); Lymphocyte # 0.46 X10^3/ul (4.0); Lymphocyte % 2.1 % (19-41); Mean Corp Hgb Conc 30.6 g/gl (32-36); Mean Corpuscular Hgb 29.2 pg (27.0-32.0); Mean Corpuscular Volume 95.2 fL (81-99); Mean Platelet Vol. 11.8 fl (6.2-12.0); Monocyte% 3.6 % (0-10); Neutrophil # 20.92 X10^3/uL (2.7-7.7); Neutrophil % 93.7 % (47-70); Platelet Count 185 K/mm3 (150-450); RBC Distribution Width CV 16.5 % (11.6-14.6); RBC Distribution Width SD 54.1 fl (35.1-43.9); Red Blood Count 3.12 M/mm3 (4.2-5.4); White Blood Count 22.3 K/mm3 (4.4-11.0)
[2017-11-07 08:41] LABS: Differential Indicated SCAN CRITERIA MET; POSITIVE COUNT NO; POSITIVE DIFFERENTIAL YES; POSITIVE MORPHOLOGY NO
[2017-11-07] MEDS: MethylPREDNISolone 4 MG Tablet 6 MG PO (09:14)
[2017-11-07] MEDS: Multivitamins,Therapeutic Tablet 1 TABLET PO (09:15)
[2017-11-07] MEDS: Aspirin 81 MG TAB.CHEW PO (09:15)
--- NOTE | 2017-11-07 10:43 | CASEMGMT ---
RN NIKOLAS Face to Face with patient for initial transition planning/care coordination assessment. RN NIKOLAS introduced self and role at [facility]. Patient lying in bed, alert and oriented. Patient willing to participate in assessment and is able to answer all questions appropriately. Care providers, pharmacy, and demographics verified. See link attached. Patient wishes to discharge home and if discharged with IV ATBs would like [facility]. Patient is agreeable to [facility]. Patient states that she has done her IV ATBs before in the past. Patient states he has no further needs or concerns at this time. Per ID Dr. Vasquez patient will require daily IV ATB at discharge. CM to follow for discharge planning needs that may arise. Disposition Plan: Patient to discharge home with HHC, family support, and follow-up plans in place.
--- NOTE | 2017-11-07 11:05 | US_ITS ---
STUDY: RENAL ULTRASOUND - COMPLETE REASON FOR EXAM: Female, 67 years old. Acute renal failure. TECHNIQUE: Ultrasound evaluation of the kidneys was performed with real-time and static jalloh-scale imaging. COMPARISON: None. FINDINGS: RIGHT KIDNEY: Normal location of the right kidney, which is normal in size. The right kidney measures 10.5 cm x 5.3 cm x 5.0 cm. There is a normal cortex of the right kidney. The renal cortex measures 1.4 cm. There is an 8 mm x 10 mm x 7 mm cyst. There are no right renal calculi. There is no right hydronephrosis. DISTAL RIGHT URETER: There is non-visualization of the distal right ureter. There is no demonstrated right ureterovesical junction calculus. There is no demonstrated right ureteral jet. LEFT KIDNEY: Normal location of the left kidney, which is normal in size. The left kidney measures 10.4 cm x 5.4 cm x 5.8 cm. There is a normal cortex of the left kidney. The renal cortex measures 1.6 cm. 2 cysts are seen. The larger measures 2.4 cm x 2.3 cm x 2.3 cm. The smaller measures 2.2 cm x 2.1 cm x 2.4 cm. There are no left renal calculi. There is no left hydronephrosis. DISTAL LEFT URETER: There is non-visualization of the distal left ureter. There is no demonstrated left ureterovesical junction calculus. There is no demonstrated left ureteral jet. BLADDER: There is a normal wall thickness of the distended urinary bladder. There is no demonstrated mass within the urinary bladder. There are no demonstrated bladder calculi. US/Kidney and Bladder IMPRESSION: Small bilateral renal cysts. Electronically Signed: Karthikeyan Longo MD at 13:55 EDT Tel [phone], Service support ,
--- NOTE | 2017-11-07 11:10 | CON.PCM_ITS ---
Problem List (1) Pyelonephritis Status: Acute Reason for Consult: uti Consulted by: Dr. Cobos History of Present Illness: The patient is a 67 year old F who presented with about 5 days of nausea, vomiting, low abd pain, fever, chills, dysuria, and increased frequency of urination. Seen in ED 11/04, cxs sent, sent out on keflex. Sx worsened after a day, came back to ED. Denies any back pain. Temp was 100.8. Ucx with proteus. Started on ertapenem, feeling a little better this AM. Full ROS performed and neg except as noted above. - Medical History Past Medical History (Chronic Problems): Chronic Problems Steroid dependent (Chronic) PVD (peripheral vascular disease) (Chronic) Raynaud's phenomenon (Chronic) Insulin dependent diabetes mellitus (Chronic) Pulmonary hypertension (Chronic) Congestive heart failure with LV diastolic dysfunction, NYHA class 3 (Chronic) Moderate mitral regurgitation by prior echocardiogram (Chronic) on ECHO in December of 2014 Non-healing ulcer of left foot (Chronic) left foot History of thyroidectomy (Chronic) Acquired hypothyroidism (Chronic) S/P thyroidectomy for hyperthyroidism Osteoporosis (Chronic) Pancreatic cyst (Chronic) Diabetes mellitus type I (Chronic) Dermatomyositis (Chronic) Iliac artery thrombosis, bilateral (Chronic) S/P BL iliac stents History of hepatitis (Chronic) does not know what type Chronic renal failure, stage 3 (moderate) (Chronic) Anemia (Chronic) Benign essential hypertension (Chronic) Allergies/Adverse Reactions: Allergies sulfamethoxazole [From Bactrim] Allergy (Verified 11/04/17 03:03) Rash trimethoprim [From Bactrim] Allergy (Verified 11/04/17 03:03) Rash hydrocodone [From Vicodin] Adverse Reaction (Verified 11/04/17 03:03) Vomiting nafcillin Adverse Reaction (Verified 11/04/17 03:03) Vomiting Home Medications: Ambulatory Orders Medication Instructions Recorded Aspirin [Aspirin, Baby] 81 mg PO BREAKFAST 05/04/13 Ezetimibe [Zetia] 10 mg PO QHS 05/04/13 Levothyroxine [Synthroid] 100 mcg PO DAILY 05/04/13 Metoprolol(XL)Succ [Toprol Xl 25 mg PO DAILY 05/04/13 (Beta Karen)] Multivitamins,Therapeutic 1 tablet PO DAILY 05/04/13 [Multivitamin] Omeprazole [Prilosec] 20 mg PO DAILY 05/04/13 Warfarin [Coumadin] 2 mg PO DAILY 05/04/13 Insulin Regular, Human [Novolin R] 0 unit SC TIDCM 04/18/16 Folic Acid 100 mcg PO DAILY 06/03/16 MethylPREDNISolone 6 mg PO DAILY 06/03/16 Ondansetron [Zofran Odt] 4 mg PO Q8H PRN PRN #10 tablet 06/03/16 Insulin Glargine,Hum.rec.anlog 40 units SQ DAILY 09/12/16 [Lantus] Cephalexin [Keflex] 500 mg PO Q6 #40 cap 11/04/17 - Social History Tobacco Use: non-smoker Vital Signs Temp Pulse Resp BP Pulse Ox 98.8 F 89 18 108/52 L 99 11/07/17 09:10 11/07/17 09:38 11/07/17 09:10 11/07/17 09:10 11/07/17 09:10 Oxygen Flow Rate (L/min) 2 Oxygen Delivery Method Nasal Cannula Weight: 73.6 kg Body Mass Index (BMI) 27.7 Laboratory Tests Past 24 Hrs 11/07/17 11/07/17 11/07/17 06:35 06:35 06:35 WBC 22.3 H RBC 3.12 L Hgb 9.1 L Hct 29.7 L MCV 95.2 MCH 29.2 MCHC 30.6 L RDW 16.5 H RDW Differential 54.1 H Plt Count 185 MPV 11.8 Immature Gran % (Auto) 0.400 Neut % (Auto) 93.7 H Lymph % (Auto) 2.1 L [place] % (Auto) 3.6 Eos % (Auto) 0.1 Baso % (Auto) 0.1 Absolute Neuts (auto) 20.9 H Absolute Lymphs (auto) 0.46 L Total Counted Not Reportable Platelet Estimate ADEQUATE Plt Morphology Comment CLUMPED PT 27.5 H INR 2.5 Sodium 141 Potassium 3.9 Chloride 107 Carbon Dioxide 24.0 Anion Gap 10 BUN 38 H Creatinine 1.99 H Estim Creat Clear Calc 23.69 Est GFR (MDRD) Af Amer 32 L Est GFR (MDRD) Non-Af 27 L BUN/Creatinine Ratio 19.1 Glucose 298 H Calcium 7.6 L - Other Studies Radiology: [] reviewed Other Studies: [] Route of nutrition/ use of supplements: [] Nutritional Intake: [] IV Site: [] Ng Catheter: [] - Physical Exam General: Alert, Oriented x3, Cooperative, No apparent distress HEENT: Atraumatic, PERRLA, EOMI Neck: Supple, No Nodes Lungs: Clear to auscultation, Normal air movement Cardiovascular: Regular rate, Regular Rhythm Abdomen: Bowel Sounds Present, Soft, Non-Distended, - - mild suprapubic and L flank tenderness Extremities: No edema IV Site: Peripheral Musculoskeletal: No Tenderness to Palpation of Joints or Extremities Neurological: Cranial nerves II-XII grossly intact - Assessment/Plan Antibiotics: [] Assessment/Plan: [] Active and Suspected Problems Sepsis (Acute) UTI (urinary tract infection) (Acute) Sepsis due to proteus pyelonephritis complicated by PITER - check renal u/s to look for stone/abscess/hydro. Treat proteus with meropenem while inpatient. Plan will be for d/c on iv ertapenem, will order midline. Will follow, thank you.
[2017-11-07] MEDS: Metoprolol(XL)Succ 25 MG Tablet PO (11:23)
[2017-11-07] MEDS: Pantoprazole Sodium 20 MG Tablet PO (11:23)
[2017-11-07] MEDS: Senna/Docusate Sodium 1 Tablet PO (11:23)
[2017-11-07 11:40] LABS: Bedside Glucose 479 mg/dL (70-110)
--- NOTE | 2017-11-07 14:00 | PCM.PROGNOTE ---
Patient Problems: Active and Suspected Problems Sepsis (Acute) UTI (urinary tract infection) (Acute) Pyelonephritis (Acute) Subjective: Patient seen and examined. Nausea improved. Able to tolerate clear liquids. Denies fever, chills. Complains of mild abdominal tenderness to palpation. Denies flank pain. Complains of generalized weakness. Denies other complaints. - Physical Exam General: Alert, Oriented x3, Cooperative, No apparent distress HEENT: Atraumatic, PERRLA, EOMI, Normocephalic Neck: Supple, No JVD, Negative Carotid Bruits Lungs: Clear to auscultation, Diminished Cardiovascular: Regular rate, Regular Rhythm, Normal S1, Normal S2, No murmurs Abdomen: Bowel Sounds Present, Soft, Non-Distended, Tender Extremities: No clubbing, No cyanosis, No edema, Capillary Refill Less than 3 Seconds Skin: No rashes, No breakdown Musculoskeletal: No Tenderness to Palpation of Joints or Extremities Neurological: Cranial nerves II-XII grossly intact, Neuro grossly intact Psych/Mental Status: Normal Affect, Appropriate Vital Signs Temp Pulse Resp BP Pulse Ox 98.8 F 80 18 108/52 L 97 11/07/17 09:10 11/07/17 11:23 11/07/17 09:10 11/07/17 09:10 11/07/17 11:17 Oxygen Flow Rate (L/min) 2 Oxygen Delivery Method Nasal Cannula Weight: 73.6 kg Body Mass Index (BMI) 27.7 Intake and Output for Last 24 Hours 11/05/17 11/06/17 11/07/17 23:59 23:59 23:59 Intake Total 0 / 0 1755 / 1755 Output Total 500 / 500 Balance 0 / 0 1255 / 1255 Laboratory Tests Past 24 Hrs 11/07/17 11/07/17 11/07/17 06:35 06:35 06:35 WBC 22.3 H RBC 3.12 L Hgb 9.1 L Hct 29.7 L MCV 95.2 MCH 29.2 MCHC 30.6 L RDW 16.5 H RDW Differential 54.1 H Plt Count 185 MPV 11.8 Immature Gran % (Auto) 0.400 Neut % (Auto) 93.7 H Lymph % (Auto) 2.1 L [place] % (Auto) 3.6 Eos % (Auto) 0.1 Baso % (Auto) 0.1 Absolute Neuts (auto) 20.9 H Absolute Lymphs (auto) 0.46 L Total Counted Not Reportable Platelet Estimate ADEQUATE Plt Morphology Comment CLUMPED PT 27.5 H INR 2.5 Sodium 141 Potassium 3.9 Chloride 107 Carbon Dioxide 24.0 Anion Gap 10 BUN 38 H Creatinine 1.99 H Estim Creat Clear Calc 23.69 Est GFR (MDRD) Af Amer 32 L Est GFR (MDRD) Non-Af 27 L BUN/Creatinine Ratio 19.1 Glucose 298 H Calcium 7.6 L POC Glucose 11/07/17 11/07/17 11/07/17 11:26 06:14 01:59 POC Glucose 479 H* 273 H 191 H 11/06/17 11/06/17 23:24 23:07 POC Glucose 149 H 64 L Medical Necessity - Tobacco Use Smoking Status: Former smoker Tobacco Use: Non-smoker Assessment/Plan Active and Suspected Problems Sepsis (Acute) UTI (urinary tract infection) (Acute) Pyelonephritis (Acute) 1. Acute sepsis secondary to acute complicated Proteus pyelonephritis, failed outpatient antibiotic therapy secondary to resistance-urine culture as outpatient 11/04/17 positive for Proteus mirabilis. ID consulted. Continue IV meropenem. ID recommending discharge on IV ertapenem. Midline ordered. Continue IV fluids. Blood cultures pending. 2. Acute kidney injury on chronic renal failure stage III-secondary to #1, N/V. IV fluids. Monitor BMP. Renal ultrasound showed small bilateral renal cyst. Otherwise unremarkable. 3. Type 2 diabetes [id number] before meals at bedtime with sliding scale insulin. Continue home long-acting regimen. 4. Chronic CHF-no acute exacerbation. Continue home regimen. Echocardiogram March 2016 showed an EF of 20%, stage I diastolic dysfunction. She was noted to have takotsubos cardiomyopathy. 5. CAD/PAD-status post CABG. Continue aspirin, Zetia, beta-raphael, Coumadin. 6. Hypertension-stable, continue home regimen. 7. Hypothyroidism-status post thyroidectomy. Continue Synthroid regimen. 8. Chronic normocytic anemia- stable. Follows with Dr. Bowden. 9. GERD-continue PPI. 10. Dermatomyositis-on chronic steroids. Patient should be on osteoporosis protective medication given chronic steroid use. DVT prophylaxis- coumadin. This patient was seen by ADALID Bower under the supervision of Dr. Justin.
[2017-11-07 14:31] LABS: Bedside Glucose 322 mg/dL (70-110)
--- NOTE | 2017-11-07 14:34 | PN_ITS ---
Patient Problems: Active and Suspected Problems Sepsis (Acute) UTI (urinary tract infection) (Acute) Pyelonephritis (Acute) Subjective: Patient seen and examined. Nausea improved. Able to tolerate clear liquids. Denies fever, chills. Complains of mild abdominal tenderness to palpation. Denies flank pain. Complains of generalized weakness. Denies other complaints. - Physical Exam General: Alert, Oriented x3, Cooperative, No apparent distress HEENT: Atraumatic, PERRLA, EOMI, Normocephalic Neck: Supple, No JVD, Negative Carotid Bruits Lungs: Clear to auscultation, Diminished Cardiovascular: Regular rate, Regular Rhythm, Normal S1, Normal S2, No murmurs Abdomen: Bowel Sounds Present, Soft, Non-Distended, Tender Extremities: No clubbing, No cyanosis, No edema, Capillary Refill Less than 3 Seconds Skin: No rashes, No breakdown Musculoskeletal: No Tenderness to Palpation of Joints or Extremities Neurological: Cranial nerves II-XII grossly intact, Neuro grossly intact Psych/Mental Status: Normal Affect, Appropriate Vital Signs Temp Pulse Resp BP Pulse Ox 98.8 F 80 18 108/52 L 97 11/07/17 09:10 11/07/17 11:23 11/07/17 09:10 11/07/17 09:10 11/07/17 11:17 Oxygen Flow Rate (L/min) 2 Oxygen Delivery Method Nasal Cannula Weight: 73.6 kg Body Mass Index (BMI) 27.7 Intake and Output for Last 24 Hours 11/05/17 11/06/17 11/07/17 23:59 23:59 23:59 Intake Total 0 / 0 1755 / 1755 Output Total 500 / 500 Balance 0 / 0 1255 / 1255 Laboratory Tests Past 24 Hrs 11/07/17 11/07/17 11/07/17 06:35 06:35 06:35 WBC 22.3 H RBC 3.12 L Hgb 9.1 L Hct 29.7 L MCV 95.2 MCH 29.2 MCHC 30.6 L RDW 16.5 H RDW Differential 54.1 H Plt Count 185 MPV 11.8 Immature Gran % (Auto) 0.400 Neut % (Auto) 93.7 H Lymph % (Auto) 2.[address] [facility] % (Auto) 3.6 Eos % (Auto) 0.1 Baso % (Auto) 0.1 Absolute Neuts (auto) 20.9 H Absolute Lymphs (auto) 0.46 L Total Counted Not Reportable Platelet Estimate ADEQUATE Plt Morphology Comment CLUMPED PT 27.5 H INR 2.5 Sodium 141 Potassium 3.9 Chloride 107 Carbon Dioxide 24.0 Anion Gap 10 BUN 38 H Creatinine 1.99 H Estim Creat Clear Calc 23.69 Est GFR (MDRD) Af Amer 32 L Est GFR (MDRD) Non-Af 27 L BUN/Creatinine Ratio 19.1 Glucose 298 H Calcium 7.6 L POC Glucose 11/07/17 11/07/17 11/07/17 11:26 06:14 01:59 POC Glucose 479 H* 273 H 191 H 11/06/17 11/06/17 23:24 23:07 POC Glucose 149 H 64 L Medical Necessity - Tobacco Use Smoking Status: Former smoker Tobacco Use: Non-smoker Assessment/Plan Active and Suspected Problems Sepsis (Acute) UTI (urinary tract infection) (Acute) Pyelonephritis (Acute) 1. Acute sepsis secondary to acute complicated Proteus pyelonephritis, failed outpatient antibiotic therapy secondary to resistance-urine culture as outpatient 11/04/17 positive for Proteus mirabilis. ID consulted. Continue IV meropenem. ID recommending discharge on IV ertapenem. Midline ordered. Continue IV fluids. Blood cultures pending. 2. Acute kidney injury on chronic renal failure stage III-secondary to #1, N/ V. IV fluids. Monitor BMP. Renal ultrasound showed small bilateral renal cyst. Otherwise unremarkable. 3. Type 2 diabetes [id number] before meals at bedtime with sliding scale insulin. Continue home long-acting regimen. 4. Chronic CHF-no acute exacerbation. Continue home regimen. Echocardiogram March 2016 showed an EF of 20%, stage I diastolic dysfunction. She was noted to have takotsubos cardiomyopathy. 5. CAD/PAD-status post CABG. Continue aspirin, Zetia, beta-raphael, Coumadin. 6. Hypertension-stable, continue home regimen. 7. Hypothyroidism-status post thyroidectomy. Continue Synthroid regimen. 8. Chronic normocytic anemia- stable. Follows with Dr. Bowden. 9. GERD-continue PPI. 10. Dermatomyositis-on chronic steroids. Patient should be on osteoporosis protective medication given chronic steroid use. DVT prophylaxis- coumadin. This patient was seen by ADALID Bower under the supervision of Dr. Justin.
[2017-11-07] MEDS: 0.9% Normal Saline 1,000 ML 75 ML IV (15:51)
[2017-11-07 16:51] LABS: Bedside Glucose 233 mg/dL (70-110)
[2017-11-07] MEDS: Ezetimibe 10 MG Tablet PO (21:31)
[2017-11-07 21:41] LABS: Bedside Glucose 133 mg/dL (70-110)
[2017-11-08] VITALS (14 sets, daily range): BP systolic 111–141; BP diastolic 54–67; PULSE 66–89; RESP 16–18; TEMP 36.4–37; O2SAT 93–100
--- NOTE | 2017-11-08 04:12 | NUR.TO.PHY ---
Patient has not been OOB since admission. Using Bedpan. Very weak, healing wounds to legs. No PT/OT consult?
--- NOTE | 2017-11-08 06:20 | NURSING ---
Blood sugar checked in right hand palm per patient request as this is where she takes it @ home. Sugar 23. Rechecked in left palm, 22. A third check in right hand thumb was 18. Called for Charge, PHYSICAL SCIENTIST to get snack. Charge called lab for stat backup while PHYSICAL SCIENTIST provided orange juice provided. A second machine was obtained, taken from right thumb sugar was 21. Patient is sitting up right, alert/oriented, nondiaphoretic, denies nausea/chills. Milk, peanut butter and kaley doones provided following policy. Will reassess blood sugar following 15 minutes from snack.
--- NOTE | 2017-11-08 06:26 | NURSING ---
Called for stat lab backup for glucose of 18. Pt alert & talking. States she is asymptomatic. OJ given by Zoe DALY. Blood sugar recheck was 21. Snack given.
[2017-11-08] MEDS: Levothyroxine 100 MCG Tablet PO (06:31)
[2017-11-08] MEDS: Dextrose 50%-Water 25 GM/50 ML DISP.SYRIN IV (06:47)
[2017-11-08] MEDS: 0.9% NaCl Peripheral Flush Adult/Peds IV (06:53)
--- NOTE | 2017-11-08 07:06 | NURSING ---
D50 given @ [id number]. Patient now shaking/shivering and becoming diaphoretic. Blood sugar recheck following 15m is 181. Will follow protocol.
[2017-11-08 07:11] LABS: Bedside Glucose 18 mg/dL (70-110)
[2017-11-08 07:11] LABS: Bedside Glucose 21 mg/dL (70-110)
[2017-11-08 07:11] LABS: Bedside Glucose 28 mg/dL (70-110)
[2017-11-08 07:11] LABS: Bedside Glucose 22 mg/dL (70-110)
[2017-11-08 07:11] LABS: Bedside Glucose 23 mg/dL (70-110)
[2017-11-08 07:11] LABS: Bedside Glucose 181 mg/dL (70-110)
[2017-11-08 07:16] LABS: Hematocrit 32.4 % (37-47); Hemoglobin 9.7 g/dl (12.0-15.0); Mean Corp Hgb Conc 29.9 g/gl (32-36); Mean Corpuscular Hgb 28.9 pg (27.0-32.0); Mean Corpuscular Volume 96.4 fL (81-99); Mean Platelet Vol. 11.5 fl (6.2-12.0); Platelet Count 161 K/mm3 (150-450); RBC Distribution Width CV 16.4 % (11.6-14.6); RBC Distribution Width SD 55.7 fl (35.1-43.9); Red Blood Count 3.36 M/mm3 (4.2-5.4); Scan Indicated on CBC? Y/N NO
[2017-11-08 07:34] LABS: International Normalized Ratio 1.7
[2017-11-08 07:49] LABS: Anion Gap 7 (5-15); BUN 34 mg/dL (7-18); BUN/Creat Ratio 23.8 RATIO (10-20); Calcium,Total 7.7 mg/dL (8.5-10.1); Chloride 111 mmol/L (98-107); Creatinine, Serum 1.43 mg/dL (0.55-1.02); EST Glomerular Filtration Rate 39 mL/min (>60); Est Glom Filt Rate - Afr Amer 47 mL/min (>60); Estimated Creatinine Clearance 32.97 ml/min; Glucose 184 mg/dL (74-106); Potassium 3.4 mmol/L (3.5-5.1); Sodium Level 142 mmol/L (136-145)
[2017-11-08] MEDS: 0.9% Normal Saline 1,000 ML 75 ML IV (08:04)
[2017-11-08 08:16] LABS: Bedside Glucose 148 mg/dL (70-110)
[2017-11-08] MEDS: Aspirin 81 MG TAB.CHEW PO (08:20)
[2017-11-08] MEDS: MethylPREDNISolone 4 MG Tablet 6 MG PO (08:21)
[2017-11-08] MEDS: Multivitamins,Therapeutic Tablet 1 TABLET PO (08:21)
[2017-11-08] MEDS: Metoprolol(XL)Succ 25 MG Tablet PO (08:22)
[2017-11-08] MEDS: Calcium Carb/Vitamin D 1 TABLET Tablet PO (08:22)
[2017-11-08] MEDS: Senna/Docusate Sodium 1 Tablet PO (08:22)
[2017-11-08] MEDS: Pantoprazole Sodium 20 MG Tablet PO (08:22)
--- NOTE | 2017-11-08 09:14 | PN_ITS ---
Patient Problems: Active and Suspected Problems Sepsis (Acute) UTI (urinary tract infection) (Acute) Pyelonephritis (Acute) Subjective: Patient seen and examined. She had an episode of hypoglycemia this morning with a glucose of 18. Patient states she was asymptomatic. She states she is normally aware when her blood glucose is low but denies any symptoms during this episode. Blood glucose now stable. Patient complains of continued weakness and general malaise. Poor appetite. Denies nausea, vomiting. Denies fever, chills. Denies urinary symptoms. Denies other complaints. - Physical Exam General: Alert, Oriented x3, Cooperative, No apparent distress HEENT: Atraumatic, PERRLA, EOMI, Normocephalic Neck: Supple, No JVD, Negative Carotid Bruits Lungs: Clear to auscultation, Normal air movement Cardiovascular: Regular rate, Regular Rhythm, Normal S1, Normal S2, No murmurs Abdomen: Bowel Sounds Present, Soft, Non Tender, Non-Distended Extremities: No clubbing, No cyanosis, No edema, Capillary Refill Less than 3 Seconds Skin: No rashes, No breakdown Musculoskeletal: No Tenderness to Palpation of Joints or Extremities Neurological: Cranial nerves II-XII grossly intact, Neuro grossly intact Psych/Mental Status: Normal Affect, Appropriate Vital Signs Temp Pulse Resp BP Pulse Ox 98.0 F 81 18 127/60 H 94 11/08/17 08:08 11/08/17 08:22 11/08/17 08:08 11/08/17 08:22 11/08/17 08:08 Oxygen Flow Rate (L/min) 2 Oxygen Delivery Method Room Air Weight: 73.6 kg Body Mass Index (BMI) 27.7 Intake and Output for Last 24 Hours 11/06/17 11/07/17 11/08/17 23:59 23:59 23:59 Intake Total 0 / 0 2330 / 2330 1298 / 1298 Output Total 1000 / 1000 Balance 0 / 0 1330 / 1330 1298 / 1298 Laboratory Tests Past 24 Hrs 11/08/17 11/08/17 11/08/17 06:10 06:54 06:54 WBC 14.0 H RBC 3.36 L Hgb 9.7 L Hct 32.4 L MCV 96.4 MCH 28.9 MCHC 29.9 L RDW 16.4 H RDW Differential 55.7 H Plt Count 161 MPV 11.5 PT 20.0 H INR 1.7 Sodium 142 Potassium 3.4 L Chloride 111 H Carbon Dioxide 24.0 Anion Gap 7 BUN 34 H Creatinine 1.43 H Estim Creat Clear Calc 32.97 Est GFR (MDRD) Af Amer 47 L Est GFR (MDRD) Non-Af 39 L BUN/Creatinine Ratio 23.8 H Glucose 184 H Calcium 7.7 L POC Glucose 11/08/17 11/08/17 11/08/17 08:02 07:04 06:42 POC Glucose 148 H 181 H 28 L* 11/08/17 11/08/17 11/08/17 06:25 06:22 06:20 POC Glucose 21 L* 18 L* 22 L* 11/08/17 11/07/17 11/07/17 06:18 21:29 16:44 POC Glucose 23 L* 133 H 233 H 11/07/17 11/07/17 14:26 11:26 POC Glucose 322 H 479 H* Medical Necessity - Tobacco Use Smoking Status: Former smoker Tobacco Use: Non-smoker Assessment/Plan Active and Suspected Problems Sepsis (Acute) UTI (urinary tract infection) (Acute) Pyelonephritis (Acute) 1. Acute sepsis secondary to acute complicated Proteus pyelonephritis, failed outpatient antibiotic therapy secondary to resistance-urine culture as outpatient 11/04/17 positive for Proteus mirabilis. ID consulted. Continue IV meropenem. ID recommending discharge on IV ertapenem. Midline in place. Continue IV fluids. Preliminary blood culture shows gram-negative rods. 2. Acute kidney injury on chronic renal failure stage III-secondary to #1, N/ V. IV fluids. Monitor BMP. Renal ultrasound showed small bilateral renal cyst. Otherwise unremarkable. Creatinine improved. 3. Type 2 diabetes [id number] before meals at bedtime with sliding scale insulin, home Levemir regimen. Patient had episode of hypoglycemia this morning. She has had a poor appetite. Continue to monitor. 4. Chronic CHF-no acute exacerbation. Continue home regimen. Echocardiogram March 2016 showed an EF of 20%, stage I diastolic dysfunction. She was noted to have takotsubos cardiomyopathy. 5. CAD/PAD-status post CABG. Continue aspirin, Zetia, beta-raphael, Coumadin. 6. Hypertension-stable, continue home regimen. 7. Hypothyroidism-status post thyroidectomy. Continue Synthroid regimen. 8. Chronic normocytic anemia- stable. Follows with Dr. Bowden. 9. GERD-continue PPI. 10. Dermatomyositis-on chronic steroids. Patient should be on osteoporosis protective medication given chronic steroid use. DVT prophylaxis- coumadin. This patient was seen by ADALID Bower under the supervision of Dr. Justin.
[2017-11-08 10:20] LABS: Bedside Glucose 158 mg/dL (70-110)
--- NOTE | 2017-11-08 11:05 | CASEMGMT ---
MLAIKA CONNOR received script for ID for home IV ATB. Patient is agreeable to I for IV ATB and [facility] for HHC. Referral sent to [facility] and they are able to accept the patient. Referral made to I. Discharge anticipated for Saturday with start of care for Friday 11/10 at 10am when next dose of ATB due. MALIKA CONNOR updated [facility] regarding start of care date and provided with face to face. [facility] updated MALIKA CONNOR with cost of $98 per day for IV ATB and supplies. MALIKA CONNOR updated patient regarding HHC through [facility], cost of medication, and anticipated start of care at home for Saturday 10am. MALIKA CONNOR will remain available to patient and plan for a safe discharge.
--- NOTE | 2017-11-08 11:11 | CASEMGMT ---
Addendum entered by Kimberlyn Giraldo 11/08/17 11:25: Pt denied any issues or concerns at this time. Original Note: Social Work Note SW met with pt to offer support to pt as pt recently lost her last month. SW offered support to pt and asked about family support for pt. Pt states that she has support through her family and friends and has a couple close family members. Pt states that she feels supported and that one of her coping skills is to reach out to family and talk to them for support. SW asked pt how she is coping with her 's and pt states I am coping and dealing. Pt currently denied any feelings of hopelessness, worthlessness, or uselessness. Pt denied current sadness but she began to become tearful during conversation with this worker. SW encouraged pt to reach out for services if pt needs the extra support. Pt was receptive to this and states understanding. Plan: Discharge Home with [facility] Kimberlyn Giraldo TRAFFIC INVESTIGATOR, SAFETY COMPANION
--- NOTE | 2017-11-08 11:22 | PCM.PN.ID ---
Patient Problems: Active and Suspected Problems Sepsis (Acute) UTI (urinary tract infection) (Acute) Pyelonephritis (Acute) Subjective: Feeling better, no fever, abd pain improved - Physical Exam General: Alert, Cooperative Lungs: Clear to auscultation, Normal air movement Cardiovascular: Regular rate, Regular Rhythm Abdomen: Soft, Non Tender, Non-Distended Skin: No rashes Vital Signs Temp Pulse Resp BP Pulse Ox 98.0 F 87 18 127/60 H 94 11/08/17 08:08 11/08/17 10:00 11/08/17 08:08 11/08/17 08:22 11/08/17 08:08 Oxygen Flow Rate (L/min) 2 Oxygen Delivery Method Room Air Weight: 73.6 kg Body Mass Index (BMI) 27.7 Intake and Output for Last 24 Hours 11/06/17 11/07/17 11/08/17 23:59 23:59 23:59 Intake Total 0 / 0 2330 / 2330 1298 / 1298 Output Total 1000 / 1000 Balance 0 / 0 1330 / 1330 1298 / 1298 Laboratory Tests Past 24 Hrs 11/08/17 11/08/17 11/08/17 06:10 06:54 06:54 WBC 14.0 H RBC 3.36 L Hgb 9.7 L Hct 32.4 L MCV 96.4 MCH 28.9 MCHC 29.9 L RDW 16.4 H RDW Differential 55.7 H Plt Count 161 MPV 11.5 PT 20.0 H INR 1.7 Sodium 142 Potassium 3.4 L Chloride 111 H Carbon Dioxide 24.0 Anion Gap 7 BUN 34 H Creatinine 1.43 H Estim Creat Clear Calc 32.97 Est GFR (MDRD) Af Amer 47 L Est GFR (MDRD) Non-Af 39 L BUN/Creatinine Ratio 23.8 H Glucose 184 H Calcium 7.7 L POC Glucose 11/08/17 11/08/17 11/08/17 10:06 08:02 07:04 POC Glucose 158 H 148 H 181 H 11/08/17 11/08/17 11/08/17 06:42 06:25 06:22 POC Glucose 28 L* 21 L* 18 L* 11/08/17 11/08/17 11/07/17 06:20 06:18 21:29 POC Glucose 22 L* 23 L* 133 H 11/07/17 11/07/17 11/07/17 16:44 14:26 11:26 POC Glucose 233 H 322 H 479 H* Medical Necessity - Tobacco Use Smoking Status: Former smoker Tobacco Use: Non-smoker Route of nutrition/ use of supplements: [] Nutritional Intake: [] IV Site: [] Ng Catheter: [] - Assessment/Plan Antibiotics: [] Assessment/Plan: [] Active and Suspected Problems Sepsis (Acute) UTI (urinary tract infection) (Acute) Sepsis due to proteus pyelonephritis complicated by PITER -No sign on renal u/s for stone/abscess/hydro. Treat proteus with meropenem while inpatient. Plan will be for d/c on iv ertapenem, midline in place, stop date 11/16/17. PITER improved. Will follow,d/w primary team. Rx written for abx and labs.
[2017-11-08 11:35] LABS: Bedside Glucose 227 mg/dL (70-110)
[2017-11-08 16:46] LABS: Bedside Glucose 139 mg/dL (70-110)
--- NOTE | 2017-11-08 20:00 | NURSING ---
Pharmacy just called me to tell me that the Invanz he originally told the nurse should start tonight will be switched back until tomorrow am. Upon further review, he noticed the Merrem would end tonight and Invanz will start tomorrow am.
[2017-11-08] MEDS: Ezetimibe 10 MG Tablet PO (23:09)
[2017-11-09] VITALS (7 sets, daily range): BP systolic 153–155; BP diastolic 71–79; PULSE 79–82; RESP 16–18; TEMP 36.9; O2SAT 94
[2017-11-09] MEDS: 0.9% Normal Saline 1,000 ML 75 ML IV (01:00)
[2017-11-09 01:06] LABS: Bedside Glucose 139 mg/dL (70-110)
[2017-11-09] MEDS: Levothyroxine 100 MCG Tablet PO (05:13)
[2017-11-09 05:21] LABS: Bedside Glucose 81 mg/dL (70-110)
[2017-11-09 07:29] LABS: Hematocrit 30.7 % (37-47); Hemoglobin 9.4 g/dl (12.0-15.0); Mean Corp Hgb Conc 30.6 g/gl (32-36); Mean Corpuscular Hgb 28.8 pg (27.0-32.0); Mean Corpuscular Volume 94.2 fL (81-99); Mean Platelet Vol. 11.8 fl (6.2-12.0); Platelet Count 161 K/mm3 (150-450); RBC Distribution Width SD 52.9 fl (35.1-43.9); Red Blood Count 3.26 M/mm3 (4.2-5.4); White Blood Count 10.1 K/mm3 (4.4-11.0)
[2017-11-09 07:30] LABS: Scan Indicated on CBC? Y/N NO
[2017-11-09 07:35] LABS: International Normalized Ratio 1.4; Prothrombin Time (Protime)PT. 17.6 SECONDS (11.7-14.9)
[2017-11-09 07:39] LABS: Anion Gap 5 (5-15); BUN 22 mg/dL (7-18); BUN/Creat Ratio 21.8 RATIO (10-20); Chloride 112 mmol/L (98-107); Creatinine, Serum 1.01 mg/dL (0.55-1.02); EST Glomerular Filtration Rate 58 mL/min (>60); Est Glom Filt Rate - Afr Amer 70 mL/min (>60); Estimated Creatinine Clearance 46.67 ml/min; Glucose 101 mg/dL (74-106); Potassium 3.9 mmol/L (3.5-5.1); Sodium Level 140 mmol/L (136-145)
[2017-11-09] MEDS: MethylPREDNISolone 4 MG Tablet 6 MG PO (08:40)
[2017-11-09] MEDS: Aspirin 81 MG TAB.CHEW PO (08:40)
[2017-11-09] MEDS: Metoprolol(XL)Succ 25 MG Tablet PO (08:40)
[2017-11-09] MEDS: Calcium Carb/Vitamin D 1 TABLET Tablet PO (08:40)
[2017-11-09] MEDS: Pantoprazole Sodium 20 MG Tablet PO (08:41)
[2017-11-09] MEDS: Multivitamins,Therapeutic Tablet 1 TABLET PO (08:42)
--- NOTE | 2017-11-09 09:16 | DCINST_ITS ---
- Discharge Diagnoses Current Active Problems: Current Active and Chronic Problems Sepsis (Acute) UTI (urinary tract infection) (Acute) Pyelonephritis (Acute) You will use the following diet at home:: Calorie/Carbohydrate Controlled ( specify 1200, 1400, etc), Cardiac Discharge Activity: Return to Normal Activity Call your doctor if you observe: Fever of 101 or Higher, Inability to urinate, Shortness of breath, Dizziness, Fainting spells, Chest pain, Increased palpitations (irregular heartbeat) Allergies/Adverse Reactions: Allergies sulfamethoxazole [From Bactrim] Allergy (Verified 11/04/17 03:03) Rash trimethoprim [From Bactrim] Allergy (Verified 11/04/17 03:03) Rash hydrocodone [From Vicodin] Adverse Reaction (Verified 11/04/17 03:03) Vomiting nafcillin Adverse Reaction (Verified 11/04/17 03:03) Vomiting Medications to take at Discharge Aspirin [Aspirin, Baby] 81 mg PO BREAKFAST 05/04/13 Ezetimibe [Zetia] 10 mg PO QHS 05/04/13 Levothyroxine [Synthroid] 100 mcg PO DAILY 05/04/13 Metoprolol(XL)Succ [Toprol Xl (Beta Karen)] 25 mg PO DAILY 05/04/13 Multivitamins,Therapeutic [Multivitamin] 1 tablet PO DAILY 05/04/13 Omeprazole [Prilosec] 20 mg PO DAILY 05/04/13 Warfarin [Coumadin] 2 mg PO DAILY 05/04/13 Insulin Regular, Human [Novolin R] 0 unit SC TIDCM 04/18/16 Folic Acid 100 mcg PO DAILY 06/03/16 MethylPREDNISolone 6 mg PO DAILY 06/03/16 Ondansetron [Zofran Odt] 4 mg PO Q8H PRN PRN #10 tablet 06/03/16 Insulin Glargine,Hum.rec.anlog [Lantus] 40 units SQ DAILY 09/12/16 Ertapenem Sod [Invanz] 1 gm IV Q24 8 Days #8 vial 11/09/17 The following prescriptions were given: Ertapenem Sod [Invanz] 1 gm IV Q24 8 Days #8 vial Primary Care Physician: Laura Calvillo MD [Primary Care Provider] - Please follow up with your Primary Care Physician in: 1 Week Proposed Discharge Date: 11/09/17
--- NOTE | 2017-11-09 09:30 | DS.PCM_ITS ---
Discharge Date and Diagnosis Date of Admission: 11/06/17 Date of Discharge: 11/09/17 - Primary Discharge Diagnosis Active and Suspected Problems 1. Acute sepsis secondary to acute complicated Proteus pyelonephritis with associated bacteremia, failed outpatient antibiotic therapy secondary to resistance 2. Acute kidney injury on chronic renal failure stage III 3. Type 2 diabetes mellitus 4. Chronic combined systolic/diastolic CHF 5. CAD-status post CABG 6. Hypertension 7. Hypothyroidism 8. Chronic normocytic anemia 9. GERD 10. Dermatomyositis-on chronic steroids. - Secondary Discharge Diagnosis Chronic Problems Steroid dependent (Chronic) PVD (peripheral vascular disease) (Chronic) Raynaud's phenomenon (Chronic) Insulin dependent diabetes mellitus (Chronic) Pulmonary hypertension (Chronic) Congestive heart failure with LV diastolic dysfunction, NYHA class 3 (Chronic) Moderate mitral regurgitation by prior echocardiogram (Chronic) on ECHO in December of 2014 Non-healing ulcer of left foot (Chronic) left foot History of thyroidectomy (Chronic) Acquired hypothyroidism (Chronic) S/P thyroidectomy for hyperthyroidism Osteoporosis (Chronic) Pancreatic cyst (Chronic) Diabetes mellitus type I (Chronic) Dermatomyositis (Chronic) Iliac artery thrombosis, bilateral (Chronic) S/P BL iliac stents History of hepatitis (Chronic) does not know what type Chronic renal failure, stage 3 (moderate) (Chronic) Anemia (Chronic) Benign essential hypertension (Chronic) Hospital Course and Treatment Imaging Results: Diagnostic Data Renal Ultrasound 11/07/17 11:05 IMPRESSION: Small bilateral renal cysts. Electronically Signed: Karthikeyan Longo MD at 13:55 EDT Tel [phone], Service support , Operations: None Procedures: None Summary of Care Provided: Patient is a 67-year-old female admitted 11/06/17 due to nausea, emesis, malaise. She has a past medical history of hypothyroidism status post thyroidectomy, hypertension, hyperlipidemia, chronic normocytic anemia, chronic combined CHF, chronic kidney disease stage III, type 2 diabetes mellitus, PVD, osteoarthritis, CAD status post CABG, GERD, dermatomyositis on chronic steroid therapy. 1. Acute sepsis secondary to acute complicated Proteus pyelonephritis with associated bacteremia, failed outpatient antibiotic therapy secondary to resistance-urine culture as outpatient 11/04/17 positive for Proteus mirabilis. ID consulted. Midline was placed. Patient will be discharged on ertapenem IV with a stop date 11/16/2017. Preliminary blood cultures show gram-negative rods. 2. Acute kidney injury on chronic renal failure stage III-secondary to #1, N/ V. Renal ultrasound showed small bilateral renal cyst. Otherwise unremarkable. Acute kidney injury resolved. Creatinine at discharge 1.01. 3. Type 2 diabetes mellitus-continue home insulin regimen. Patient did have episode of hypoglycemia during admission. Continue Accu-Cheks before meals at bedtime at discharge. 4. Chronic combined CHF-no acute exacerbation. Continue home regimen. Echocardiogram March 2016 showed an EF of 20%, stage I diastolic dysfunction. She was noted to have takotsubos cardiomyopathy. No repeat echocardiogram in our system. Recommend further outpatient follow-up. 5. CAD/PAD-status post CABG. Continue aspirin, Zetia, beta-karen, Coumadin. 6. Hypertension-stable, continue home regimen. 7. Hypothyroidism-status post thyroidectomy. Continue Synthroid regimen. 8. Chronic normocytic anemia- stable. Follows with Dr. Bowden. 9. GERD-continue PPI. 10. Dermatomyositis-on chronic steroids. Patient should be on osteoporosis protective medication given chronic steroid use. Defer to PCP. General: Alert, Oriented x3, Cooperative, No apparent distress HEENT: Atraumatic, PERRLA, EOMI, Normocephalic Neck: Supple, No JVD, Negative Carotid Bruits Lungs: Clear to auscultation, Normal air movement Cardiovascular: Regular rate, Regular Rhythm, Normal S1, Normal S2, No murmurs Abdomen: Bowel Sounds Present, Soft, Non Tender, Non-Distended Extremities: No clubbing, No cyanosis, No edema, Capillary Refill Less than 3 Seconds Skin: No rashes, No breakdown Musculoskeletal: No Tenderness to Palpation of Joints or Extremities Neurological: Cranial nerves II-XII grossly intact, Neuro grossly intact Psych/Mental Status: Normal Affect, Appropriate Patient seen and examined prior to discharge. Physical assessment as noted above. Patient denies further nausea, emesis. Denies fever, chills. Stable for discharge home with home health and further IV antibiotic therapy. This patient was seen by ADALID Bower under the supervision of Dr. Barrientos. Discharge Diet: Low fat/ Low Cholesterol, Carb Control Diet Discharge Activity: Return to Normal Activity Call your doctor if you observe: Fever of 101 or Higher, Inability to urinate, Shortness of breath, Dizziness, Fainting spells, Chest pain, Increased palpitations (irregular heartbeat) Home Medications: Medications to take at Discharge Aspirin [Aspirin, Baby] 81 mg PO BREAKFAST 05/04/13 Ezetimibe [Zetia] 10 mg PO QHS 05/04/13 Levothyroxine [Synthroid] 100 mcg PO DAILY 05/04/13 Metoprolol(XL)Succ [Toprol Xl (Beta Karen)] 25 mg PO DAILY 05/04/13 Multivitamins,Therapeutic [Multivitamin] 1 tablet PO DAILY 05/04/13 Omeprazole [Prilosec] 20 mg PO DAILY 05/04/13 Warfarin [Coumadin] 2 mg PO DAILY 05/04/13 Insulin Regular, Human [Novolin R] 0 unit SC TIDCM 04/18/16 Folic Acid 100 mcg PO DAILY 06/03/16 MethylPREDNISolone 6 mg PO DAILY 06/03/16 Ondansetron [Zofran Odt] 4 mg PO Q8H PRN PRN #10 tablet 06/03/16 Insulin Glargine,Hum.rec.anlog [Lantus] 40 units SQ DAILY 09/12/16 Ertapenem Sod [Invanz] 1 gm IV Q24 8 Days #8 vial 11/09/17 Following Prescrptions Were Given to Patient: Ertapenem Sod [Invanz] 1 gm IV Q24 8 Days #8 vial Primary Care Physician: Laura Calvillo MD [Primary Care Provider] - Please follow up with your Primary Care Physician in: 1 Week Disposition: Home with Home Health Minutes spent on discharge:: 35 Patient Condition:: Stable Medical Necessity - Tobacco Use Smoking Status: Former smoker Tobacco Use: Non-smoker Meaningful Use Info Meaningful Use Diagnoses (Choose all that apply): None applicable
--- NOTE | 2017-11-09 09:55 | PCA ---
Call placed to [facility] (spoke with Heather) notifying them of pt discharge on this date. Start of care remains scheduled for 11/10/17. Faxed discharge instructions to both agencies.
[2017-11-09 11:20] LABS: Bedside Glucose 133 mg/dL (70-110)
[2017-11-09] MEDS: 0.9% NaCl Peripheral Flush Adult/Peds IV (11:31)
--- NOTE | 2017-11-11 15:39 | CASEMGMT ---
MALIKA CONNOR Discharge Follow-up Phone Call: ERIC: Kana Strata: 4 Call Date: 11/11/17 Discharge Date: 11/09/17 Time of Call: 1539 Duration: 2 min Admitting Diagnosis: Sepsis, UTI RN NIKOLAS placed call to patient with no answer. RN CM left voice message requesting call back and contact information given. MALIKA CONNOR called [facility] liaison Dorina to inquire if C had gotten out to see patient yesterday and today. Dorina stated that she would get back with me. No follow-up appts were made prior to discharge.
== END 2017-11-09 13:01 | disposition home or self-care (01) | DRG 872 ==
LOC: ED 19:47 → MS3 22:00
PROVIDERS: Internal Medicine; Nurse Practitioner Family; Admitting Provider Family Medicine; Emergency Provider Emergency Medicine; Family Provider Internal Medicine; PCP Internal Medicine; Visit Provider Internal Medicine
DX: A41.9 Sepsis, unspecified organism (principal); N10 Acute pyelonephritis; N17.9 Acute kidney failure, unspecified; I13.0 Hypertensive heart and chronic kidney disease with heart failure and stage 1 through stage 4 chronic kidney disease, or unspecified chronic kidney disease; I50.42 Chronic combined systolic (congestive) and diastolic (congestive) heart failure; M33.10 Other dermatomyositis, organ involvement unspecified; B96.4 Proteus (mirabilis) (morganii) as the cause of diseases classified elsewhere; I25.10 Atherosclerotic heart disease of native coronary artery without angina pectoris; E78.00 Pure hypercholesterolemia, unspecified; E11.21 Type 2 diabetes mellitus with diabetic nephropathy; Z86.74 Personal history of sudden cardiac arrest; I25.2 Old myocardial infarction; I73.9 Peripheral vascular disease, unspecified; K21.9 Gastro-esophageal reflux disease without esophagitis; I65.8 Occlusion and stenosis of other precerebral arteries; Z79.4 Long term (current) use of insulin; I27.20 Pulmonary hypertension, unspecified; M19.90 Unspecified osteoarthritis, unspecified site; E11.22 Type 2 diabetes mellitus with diabetic chronic kidney disease; N18.3 Chronic kidney disease, stage 3 (moderate); Z87.891 Personal history of nicotine dependence; I34.0 Nonrheumatic mitral (valve) insufficiency; E89.0 Postprocedural hypothyroidism; K75.9 Inflammatory liver disease, unspecified; D64.9 Anemia, unspecified; Z79.82 Long term (current) use of aspirin; Z79.01 Long term (current) use of anticoagulants; Z79.899 Other long term (current) drug therapy; Z79.52 Long term (current) use of systemic steroids; N28.1 Cyst of kidney, acquired; R11.2 Nausea with vomiting, unspecified; Z86.718 Personal history of other venous thrombosis and embolism; Z95.1 Presence of aortocoronary bypass graft
CPT/HCPCS: 36415; 76770; 80048; 80053; 81001; 82962; 83605; 83735; 85025; 85027; 85610; 85730; 87040; 87077; 87086; 87088; 87186; 96374; 96375; 97162; 97166; 97802; 99284; 99285; J2185; J7030; J7040; P9612; A4216; J2405

== ENCOUNTER → 2017-11-11 13:55 | Outpatient (CLI) | payer MEDICARE, OTHER, SELFPAY ==
[2017-11-11 15:41] LABS: Absolute Lymphocyte Count 1.19 X10^3/ul (0.83-4.51); Absolute Neutrophil Count 3.9 X10^3/uL (2.0-7.7); Basophil# 0.03 X10^3/uL; Basophil% 0.5 % (0-1); Eosinophil# 0.22 X10^3/uL; Eosinophils% 3.7 % (0-5); Hematocrit 32.5 % (37-47); Hemoglobin 10.2 g/dl (12.0-15.0); Lymphocyte # 1.19 X10^3/ul (4.0); Mean Corp Hgb Conc 31.4 g/gl (32-36); Mean Corpuscular Hgb 28.4 pg (27.0-32.0); Mean Corpuscular Volume 90.5 fL (81-99); Mean Platelet Vol. 11.9 fl (6.2-12.0); Monocyte# 0.54 X10^3/uL; Monocyte% 9.1 % (0-10); Neutrophil # 3.93 X10^3/uL (2.7-7.7); Neutrophil % 66.2 % (47-70); Platelet Count 239 K/mm3 (150-450); RBC Distribution Width CV 15.9 % (11.6-14.6); RBC Distribution Width SD 52.5 fl (35.1-43.9); Red Blood Count 3.59 M/mm3 (4.2-5.4); White Blood Count 5.9 K/mm3 (4.4-11.0)
[2017-11-11 15:43] LABS: POSITIVE COUNT NO; POSITIVE DIFFERENTIAL NO; POSITIVE MORPHOLOGY NO
[2017-11-11 15:51] LABS: Vitamin D,25 Hydroxy 32.6 ng/mL (29.95-100.01)
[2017-11-11 16:02] LABS: ALB/GLOB Ratio 0.5 RATIO (0.9-2.4); AST(SGOT) 20 U/L (15-37); Alanine Aminotransfer ALT/SGPT 24 U/L (13-56); Albumin, Serum 2.5 g/dL (3.2-5.0); Alkaline Phosphatase 87 U/L (45-117); Anion Gap 7 (5-15); BUN 21 mg/dL (7-18); BUN/Creat Ratio 18.4 RATIO (10-20); Calcium,Total 8.7 mg/dL (8.5-10.1); Chloride 104 mmol/L (98-107); Creatinine, Serum 1.14 mg/dL (0.55-1.02); EST Glomerular Filtration Rate 51 mL/min (>60); Est Glom Filt Rate - Afr Amer 61 mL/min (>60); Glucose 229 mg/dL (74-106); Potassium 3.5 mmol/L (3.5-5.1); Protein, Total 7.5 g/dL (6.4-8.2); Sodium Level 137 mmol/L (136-145); T4 Free Direct 1.43 ng/dL (0.76-1.46); T4 Total, Thyroxin 9.3 ug/dL (4.8-13.9); Thyroid Stim Hormone (TSH) 5.93 uIU/mL (0.358-3.74)
[2017-11-11 16:05] LABS: Hemoglobin A1c 7.3 % (4.2-6.3)
[2017-11-11 16:22] LABS: International Normalized Ratio 2.2; Prothrombin Time (Protime)PT. 24.8 SECONDS (11.7-14.9)
== END ==
PROVIDERS: Family Provider Internal Medicine; PCP Internal Medicine; Visit Provider Internal Medicine Infectious Disease
DX: I10 Essential (primary) hypertension (principal); E10.40 Type 1 diabetes mellitus with diabetic neuropathy, unspecified; E03.9 Hypothyroidism, unspecified; N12 Tubulo-interstitial nephritis, not specified as acute or chronic; Z51.81 Encounter for therapeutic drug level monitoring; Z79.01 Long term (current) use of anticoagulants
CPT/HCPCS: 80053; 82306; 83036; 84436; 84439; 84443; 85025; 85610

== ENCOUNTER 2017-11-24 00:23 | Inpatient (IN) | payer MEDICARE, OTHER, SELFPAY ==
[2017-11-24] VITALS (28 sets, daily range): BP systolic 104–145; BP diastolic 45–73; PULSE 80–116; RESP 15–19; TEMP 36.4–37.2; O2SAT 93–100; BMI 25.7; BMI 27.1; BMI 27.2
--- NOTE | 2017-11-24 01:05 | EKG12_ITS ---
Test Reason : Blood Pressure : / mmHG Vent. Rate : 117 BPM Atrial Rate : 117 BPM P-R Int : 128 ms QRS Dur : 086 ms QT Int : 324 ms P-R-T Axes : 057 055 115 degrees QTc Int : 451 ms Sinus tachycardia Nonspecific ST and T wave abnormality Abnormal ECG Confirmed by JASON ROWE, CAROLYN ([id number]), society editor JESSICA BUCHANAN ([id number]) on 11/26/2017 2:07:45 PM Referred By: ZAHRA Confirmed By:CAROLYN GOMEZ MD
[2017-11-24] MEDS: 0.9% Normal Saline 1,000 ML 1000 ML IV (01:33)
[2017-11-24 02:05] LABS: Absolute Lymphocyte Count 1.16 X10^3/ul (0.83-4.51); Absolute Neutrophil Count 12.4 X10^3/uL (2.0-7.7); Basophil# 0.03 X10^3/uL; Basophil% 0.2 % (0-1); Eosinophil# 0.01 X10^3/uL; Eosinophils% 0.1 % (0-5); Hematocrit 18.4 % (37-47); Lymphocyte # 1.16 X10^3/ul (4.0); Lymphocyte % 7.7 % (19-41); Mean Corp Hgb Conc 30.4 g/gl (32-36); Mean Corpuscular Hgb 28.4 pg (27.0-32.0); Mean Corpuscular Volume 93.4 fL (81-99); Monocyte# 1.33 X10^3/uL; Monocyte% 8.9 % (0-10); Neutrophil # 12.44 X10^3/uL (2.7-7.7); Neutrophil % 82.8 % (47-70); Platelet Count 351 K/mm3 (150-450); RBC Distribution Width CV 17.9 % (11.6-14.6); RBC Distribution Width SD 57.5 fl (35.1-43.9); Red Blood Count 1.97 M/mm3 (4.2-5.4)
[2017-11-24 02:06] LABS: Differential Indicated SCAN CRITERIA MET; POSITIVE COUNT YES; POSITIVE DIFFERENTIAL NO; POSITIVE MORPHOLOGY NO
[2017-11-24 02:07] LABS: Hemoglobin 5.6 g/dl (12.0-15.0)
--- NOTE | 2017-11-24 02:08 | ED.RN ---
lab called with critical lab results. hgb 5.6. Dr. Dallas made aware. orders to be placed
[2017-11-24 02:10] LABS: ALB/GLOB Ratio 0.7 RATIO (0.9-2.4); AST(SGOT) 16 U/L (15-37); Alanine Aminotransfer ALT/SGPT 21 U/L (13-56); Albumin, Serum 2.6 g/dL (3.2-5.0); Alkaline Phosphatase 79 U/L (45-117); Anion Gap 8 (5-15); BUN 69 mg/dL (7-18); BUN/Creat Ratio 36.5 RATIO (10-20); Calcium,Total 8.2 mg/dL (8.5-10.1); Chloride 104 mmol/L (98-107); Creatinine, Serum 1.89 mg/dL (0.55-1.02); EST Glomerular Filtration Rate 28 mL/min (>60); Est Glom Filt Rate - Afr Amer 34 mL/min (>60); Estimated Creatinine Clearance 24.94 ml/min; Globulin 3.9 g/dL (2.2-4.2); Glucose 542 mg/dL (74-106); Lipase 199 U/L (73-393); Potassium 4.2 mmol/L (3.5-5.1); Protein, Total 6.5 g/dL (6.4-8.2); Sodium Level 135 mmol/L (136-145)
--- NOTE | 2017-11-24 02:13 | ED.RN ---
lab called with critical lab results glucose 542. Dr. Dallas made aware. no new orders at this time
[2017-11-24 02:27] LABS: Anisocytosis 1+; Differential Comment SCAN; Microcytosis 1+; Polychromasia 1+
[2017-11-24 02:28] LABS: Hypochromasia 2+
[2017-11-24 03:23] LABS: Prothrombin Time (Protime)PT. 110.2 SECONDS (11.7-14.9)
[2017-11-24 03:25] LABS: International Normalized Ratio 14.8
--- NOTE | 2017-11-24 03:38 | NURSING ---
CALLED [facility], SPOKE TO TERESA (BED CONTROL), HE STATED THEY HAVE NO OPEN BEDS AT THIS TIME
--- NOTE | 2017-11-24 03:58 | PCM.HP.STD ---
Problem List (1) Acute on chronic anemia Status: Acute (2) Generalized weakness Status: Acute (3) Sepsis Status: Acute Qualifiers: (4) UTI (urinary tract infection) Status: Resolved (5) Pyelonephritis Status: Chronic (6) Lactic acidosis Status: Chronic (7) Steroid dependent Status: Chronic (8) Acute CHF Status: Chronic (9) Cardiac arrest, cause unspecified Status: Resolved (10) PVD (peripheral vascular disease) Status: Chronic (11) Raynaud's phenomenon Status: Chronic Qualifiers: (12) Insulin dependent diabetes mellitus Status: Chronic (13) Pulmonary hypertension Status: Chronic (14) Congestive heart failure with LV diastolic dysfunction, NYHA class 3 Status: Chronic (15) Abnormal EKG Status: Acute (16) Moderate mitral regurgitation by prior echocardiogram Status: Chronic Comment: on ECHO in December of 2014 (17) Non-healing ulcer of left foot Status: Chronic Comment: left foot (18) History of thyroidectomy Status: Chronic (19) Acquired hypothyroidism Status: Chronic Comment: S/P thyroidectomy for hyperthyroidism (20) Osteoporosis Status: Chronic Qualifiers: (21) Supratherapeutic INR Status: Acute (22) Pancreatic cyst Status: Chronic (23) Diabetes mellitus type I Status: Chronic (24) Dermatomyositis Status: Chronic (25) Iliac artery thrombosis, bilateral Status: Chronic Comment: S/P BL iliac stents (26) History of hepatitis Status: Chronic Comment: does not know what type (27) Hyponatremia Status: Acute (28) Chronic renal failure, stage 3 (moderate) Status: Chronic (29) Anemia Status: Chronic Qualifiers: (30) Benign essential hypertension Status: Chronic History of Present Illness Date of Admission: 11/24/17 Chief Complaint: Generalized weakness and dizziness The patient is a 67 year old F came to ER with severe nausea and vomiting for 1 day along with generalized weakness. Patient was discharged on 11/09/2017 after treatment with sepsis secondary to Proteus pyelonephritis and bacteremia. In ER, patient was found to have severe anemia, hemoglobin 5.6/hematocrit 18.4, INR 14.8. Patient further said she feels mild short of breath on exertion when she gets anemia. Patient had history of anemia and required blood transfusion in the past. She had multiple endoscopy, last one a few years ago, EGD and colonoscopy in [facility], Dr. Nuñez and was negative. Besides that, creatinine is elevated 1.89 from baseline 1.0 Hyperglycemia, , Glucose 542. anion gap normal. Acetone negative. [] Past Medical History Past Medical History (Chronic Problems): Chronic Problems Pyelonephritis (Chronic) Lactic acidosis (Chronic) Steroid dependent (Chronic) Acute CHF (Chronic) PVD (peripheral vascular disease) (Chronic) Raynaud's phenomenon (Chronic) Insulin dependent diabetes mellitus (Chronic) Pulmonary hypertension (Chronic) Congestive heart failure with LV diastolic dysfunction, NYHA class 3 (Chronic) Moderate mitral regurgitation by prior echocardiogram (Chronic) on ECHO in December of 2014 Non-healing ulcer of left foot (Chronic) left foot History of thyroidectomy (Chronic) Acquired hypothyroidism (Chronic) S/P thyroidectomy for hyperthyroidism Osteoporosis (Chronic) Pancreatic cyst (Chronic) Diabetes mellitus type I (Chronic) Dermatomyositis (Chronic) Iliac artery thrombosis, bilateral (Chronic) S/P BL iliac stents History of hepatitis (Chronic) does not know what type Chronic renal failure, stage 3 (moderate) (Chronic) Anemia (Chronic) Benign essential hypertension (Chronic) Allergies sulfamethoxazole [From Bactrim] Allergy (Verified 11/24/17 00:28) Rash trimethoprim [From Bactrim] Allergy (Verified 11/24/17 00:28) Rash hydrocodone [From Vicodin] Adverse Reaction (Verified 11/24/17 00:28) Vomiting nafcillin Adverse Reaction (Verified 11/24/17 00:28) Vomiting Home Medications: Ambulatory Orders Medication Instructions Recorded Aspirin [Aspirin, Baby] 81 mg PO BREAKFAST 05/04/13 Ezetimibe [Zetia] 10 mg PO QHS 05/04/13 Levothyroxine [Synthroid] 100 mcg PO DAILY 05/04/13 Metoprolol(XL)Succ [Toprol Xl 25 mg PO DAILY 05/04/13 (Beta Karen)] Multivitamins,Therapeutic 1 tablet PO DAILY 05/04/13 [Multivitamin] Omeprazole [Prilosec] 20 mg PO DAILY 05/04/13 Warfarin [Coumadin] 2 mg PO DAILY 05/04/13 Insulin Regular, Human [Novolin R] 0 unit SC TIDCM 04/18/16 Folic Acid 100 mcg PO DAILY 06/03/16 Ondansetron [Zofran Odt] 4 mg PO Q8H PRN PRN #10 tablet 06/03/16 Insulin Glargine,Hum.rec.anlog 40 units SQ DAILY 09/12/16 [Lantus] Surgical History: - - Orthopedic surgery R ankle after fracture, BL iliac stents for iliac artery thrombosis, multiple finger and toe amputations, thyroidectomy, s/p CABG. Psychiatric History: No pertinent psych hx [employer] History: No pertinent [employer] history Smoking Status: Never smoker - *Family History Paternal History Items: Cancer - father at 79 with [place] - unknow primary Maternal History Items: Heart Disease - mother at the age of 80 with [place] and CHF Sibling History Items: Diabetes Review of Systems Constitutional: Reports: Weakness, Fatigue. Denies: Chills, Fever, Weight Change HEENT: Denies: Head Aches, Sinus Congestion, Sinus Drainage Cardiovascular: Denies: Chest Pain, Palpitations Respiratory: Reports: Shortness of breath upon exertion. Denies: Cough, Shortness of breath at rest, Sputum production Gastrointestinal: Reports: Nausea, Vomiting. Denies: Abdominal Pain, Hematemesis, Hematochezia, Melena Genitourinary: Denies: Dysuria Musculoskeletal: Reports: - - Left foot drop. Denies: Joint Pain, Joint Tenderness Skin: Denies: Rash, Wounds Neurological: Denies: Numbness, Tingling, Focal weakness Psychiatric: Denies: Anxiety, Depression, Homicidal Ideations, Suicidal Ideations Hematologic/ Lymphatic: Denies: Easy Bruising, Easy Bleeding VTE Information - Inpt Only VTE Present on Admission: No VTE Mechan Device Prophylaxis: SCD's Reason prophylaxis not ordered:: Medical Contraindication - Active GI bleed Patient Problems: Active and Suspected Problems Acute on chronic anemia (Acute) Generalized weakness (Acute) - Physical Exam General: Alert, Oriented x3, Cooperative HEENT: Atraumatic, PERRLA, EOMI, Normocephalic Neck: Supple, No JVD, Negative Carotid Bruits Lungs: Clear to auscultation, Normal air movement Cardiovascular: Regular Rhythm, Normal S1, Normal S2, No murmurs, Tachycardic Abdomen: Bowel Sounds Present, Soft, Non Tender, Non-Distended Extremities: Capillary Refill Less than 3 Seconds, Edema Skin: No rashes, No breakdown Musculoskeletal: No Tenderness to Palpation of Joints or Extremities, Arthritic Changes, Muscle Wasting, - - Left foot drop; wears diabetic foot Neurological: Cranial nerves II-XII grossly intact Psych/Mental Status: Normal Affect, Appropriate Vital Signs Temp Pulse Resp BP Pulse Ox 97.5 F L 111 H 15 135/56 H 95 11/24/17 00:23 11/24/17 03:31 11/24/17 03:31 11/24/17 03:31 11/24/17 03:31 Oxygen Delivery Method Room Air Weight: 150 lb Body Mass Index (BMI) 25.7 Finger Stick Blood Glucose 101 Microbiology Past 72 Hours 11/24/17 02:20 Stool Occult Blood (VINCE) - Final Stool Occult Blood Positive Laboratory Tests Past 24 Hrs 11/24/17 11/24/17 11/24/17 01:30 01:30 01:30 WBC 15.0 H RBC 1.97 L Hgb 5.6 L* Hct 18.4 L MCV 93.4 MCH 28.4 MCHC 30.4 L RDW 17.9 H RDW Differential 57.5 H Plt Count 351 MPV 11.0 Immature Gran % (Auto) 0.300 Neut % (Auto) 82.8 H Lymph % (Auto) 7.7 L [place] % (Auto) 8.9 Eos % (Auto) 0.1 Baso % (Auto) 0.2 Absolute Neuts (auto) 12.4 H Absolute Lymphs (auto) 1.16 Total Counted Not Reportable Differential Comment SCAN Diff Path Review May foll Polychromasia 1+ Hypochromasia 2+ Anisocytosis 1+ Microcytosis 1+ PT INR Sodium 135 L Potassium 4.2 Chloride 104 Carbon Dioxide 23.0 Anion Gap 8 BUN 69 H Creatinine 1.89 H Estim Creat Clear Calc 24.94 Est GFR (MDRD) Af Amer 34 L Est GFR (MDRD) Non-Af 28 L BUN/Creatinine Ratio 36.5 H Glucose 542 H* Calcium 8.2 L Total Bilirubin 0.20 AST 16 ALT 21 Alkaline Phosphatase 79 Troponin I < 0.02 Total Protein 6.5 Albumin 2.6 L Globulin 3.9 Albumin/Globulin Ratio 0.7 L Lipase 199 Acetone Level NEGATIVE Blood Type Antibody Screen Crossmatch 11/24/17 11/24/17 11/24/17 02:20 02:20 02:20 WBC RBC Hgb Hct MCV MCH MCHC RDW RDW Differential Plt Count MPV Immature Gran % (Auto) Neut % (Auto) Lymph % (Auto) [place] % (Auto) Eos % (Auto) Baso % (Auto) Absolute Neuts (auto) Absolute Lymphs (auto) Total Counted Differential Comment Diff Path Review Polychromasia Hypochromasia Anisocytosis Microcytosis PT Cancelled INR Cancelled Sodium Potassium Chloride Carbon Dioxide Anion Gap BUN Creatinine Estim Creat Clear Calc Est GFR (MDRD) Af Amer Est GFR (MDRD) Non-Af BUN/Creatinine Ratio Glucose Calcium Total Bilirubin AST ALT Alkaline Phosphatase Troponin I Total Protein Albumin Globulin Albumin/Globulin Ratio Lipase Acetone Level Blood Type O POSITIVE Antibody Screen NEGATIVE Crossmatch See Detail 11/24/17 03:09 WBC RBC Hgb Hct MCV MCH MCHC RDW RDW Differential Plt Count MPV Immature Gran % (Auto) Neut % (Auto) Lymph % (Auto) [place] % (Auto) Eos % (Auto) Baso % (Auto) Absolute Neuts (auto) Absolute Lymphs (auto) Total Counted Differential Comment Diff Path Review Polychromasia Hypochromasia Anisocytosis Microcytosis PT 110.2 H INR 14.8 H* Sodium Potassium Chloride Carbon Dioxide Anion Gap BUN Creatinine Estim Creat Clear Calc Est GFR (MDRD) Af Amer Est GFR (MDRD) Non-Af BUN/Creatinine Ratio Glucose Calcium Total Bilirubin AST ALT Alkaline Phosphatase Troponin I Total Protein Albumin Globulin Albumin/Globulin Ratio Lipase Acetone Level Blood Type Antibody Screen Crossmatch Assessment/Plan Active and Suspected Problems Acute on chronic anemia (Acute) Generalized weakness (Acute) The patient is a 67 year old F came to ER with severe nausea and vomiting for 1 day along with generalized weakness. Patient was discharged on 11/09/2017 after treatment with sepsis secondary to Proteus pyelonephritis and bacteremia. In ER, patient was found to have severe anemia, hemoglobin 5.6/hematocrit 18.4, INR 14.8. Patient further said she feels mild short of breath on exertion when she gets anemia. Patient had history of anemia and required blood transfusion in the past. She had multiple endoscopy, last one a few years ago, EGD and colonoscopy in [facility], Dr. Nuñez and was negative. Besides that, creatinine is elevated 1.89 from baseline 1.0 Hyperglycemia, , Glucose 542. anion gap normal. Acetone negative. 1. Acute severe anemia, most probably acute blood loss anemia from GI bleed on baseline chronic anemia:. Patient is being admitted in PCU. IV fluid resuscitation with normal saline. 2 units of PRBC and FFP ordered by ER physician. Group and crossmatch. Strict I&O's. Hemodynamic monitoring. ER physician Dr. Bingham discussed with Dr. Braun and agreed for EGD in the morning. IV Protonix 40 mg every 12 hourly. Patient is also on prednisone, baby aspirin and Coumadin. Stool for occult blood positive 2. Coagulopathy secondary to Coumadin: INR is 14.8. Vitamin K 10 mg and FFP ordered. Patient takes Coumadin for history of bilateral iliac artery thrombosis status post bilateral iliac stents. 3. Diabetes mellitus type 2 on insulin: Accu-Chek 6 hourly while n.p.o. and cover with NovoLog sliding scale. On Lantus at home. Adjust insulin as per Accu-Cheks. 4. Cardiac conditions: Chronic diastolic heart failure, coronary artery disease status post quadruple bypass, mild to moderate mitral insufficiency and TR, RVSP 75 images as to severe pulmonary hypertension: Patient had echo in March 2016 which shows EF 20% with a stage I diastolic dysfunction and severe mid anterior apical akinesis. 5. Acute kidney injury on CKD stage III most probably prerenal from hypovolemia/acute anemia: IV fluid resuscitation. Monitor intake and output. Monitor lites and kidney function. Multiple comorbidities include peripheral arterial disease, dermatomyositis on the steroid, hypothyroidism status post thyroidectomy and recent admission for severe sepsis secondary to UTI and bacteremia bacteroids fragilis. Home medication reconciliation done. Code Visit Inpatient E&M: 39684 Init Hosp L3
--- NOTE | 2017-11-24 04:02 | ED.DCSUM_ITS ---
- ER Visit Summary Date of Service: 11/24/17 Chief Complaint: Nausea and vomiting History of Present Illness: The patient is a 67 F presenting for evaluation secondary nausea and vomiting. Patient states that today she started to have feelings of generalized sweatiness, lightheadedness, weakness and generalized fatigue. She states it was associated with feelings urinary urgency. She states that directly following that she had some chills and then that was followed by multiple episodes of nonbloody nonbilious emesis. Patient states that she has some diffuse crampy abdominal pain. She denies any diarrhea. She denies any blood in her stool or black tarry stools. Patient does have an underlying history of congestive heart failure diabetes hypertension dermatomyositis peripheral vascular disease and chronic kidney disease. She is on Coumadin. Patient had a recent admission to the hospital secondary to a urinary tract infection, was on IV antibiotics as an outpatient, and these were stopped on Saturday. Physical Examination: Elderly female no acute distress sitting comfortably in the bed. Vital signs notable for heart rate of 116. There was evidence of conjunctival pallor, but no scleral icterus. Dry mucous membranes. Neck supple. Heart was tachycardic and regular. Lung sounds clear. Abdomen soft nontender nondistended normal bowel sounds. Rectal exam was nontender and was guaiac positive. There is trace peripheral edema noted bilaterally, skin was pallorous, no lateralizing neurological deficits. Test Results: EKG shows sinus tachycardia with a rate of [address] changes that are unchanged from prior EKG. CBC shows leukocytosis of 15 and a hemoglobin of 5.6. Chemistry panel shows BUN of 69 creatinine 1.89 indicative of acute kidney injury and a glucose of 542. Ketones are negative. Troponin is negative. Liver panel unremarkable, INR elevated at 14. Emergency Department Course and Treatment: Patient presented with generalized illness nausea and vomiting. Was tachycardic and dry appearing, laboratory workup was obtained. Workup shows evidence of profound anemia, acute kidney injury, hyperglycemia, and supratherapeutic INR in the setting of a GI bleed. Other than the patient being mildly tachycardic, she is not hypotensive and I do not believe that she is unstable at this point. I discussed patient's case with Dr. Braun who agrees to consult on the patient for colonoscopy. Patient was given a liter normal saline initially in the emergency department, was typed and crossmatched for 2 units of packed red blood cells, was given 5 units of vitamin K, and will be given 1 unit of fresh frozen plasma. I believe that the patient requires admission. I discussed with the hospitalist. Disposition: Admit Impression: 1. Acute, normocytic, anemia, simple 2. GI bleed 3. Supratherapeutic INR 4. Acute kidney injury 5. Hyperglycemia Critical care time 45 minutes This note was generated with [employer] dictation software. It may contain incorrect words, spelling, and punctuation that were not noted in review of the chart prior to signing ED Disposition - Plan for ED Patient: Chief Complaint: Nausea/Vomiting Referrals: Laura Calvillo MD [Primary Care Provider] -
[2017-11-24] MEDS: Phytonadione (Vit K) 10 MG/ML Ampul 5 MG SC (04:26)
[2017-11-24] MEDS: Ondansetron 4 MG/2 ML Vial IV (04:26)
--- NOTE | 2017-11-24 05:06 | ED.RN ---
0450: FFP #1 COMPLETED AT THIS TIME. VSS.
--- NOTE | 2017-11-24 05:07 | ED.RN ---
1ST UNIT OF PRBC'S INITIATED AT THIS TIME. VSS. STACH ON MONITOR. VERIFIED WITH Tatianna SAVAGE CAREER SERVICES DIRECTOR.
[2017-11-24 06:06] LABS: Bedside Glucose 461 mg/dL (70-110)
[2017-11-24] MEDS: 0.9% Normal Saline 1,000 ML 100 ML IV ×2 (07:00→18:57)
--- NOTE | 2017-11-24 08:32 | PCM.CONS.GEN ---
Reason for Consult Date of Consultation: 11/24/17 History of Present Illness: The patient is a 67 year old F with a known history of recurrent anemia with multiple medical issues including cardiac arrest after IVIG infusion. She is on chronic anticoagulation with coumadin. She noted increasing fatigue. She presented to [facility] ER and was found to have a Hgb of 5 and and INR of 11. She was admitted for transfusion and FFP administration and I was consulted. She has had prior upper and lower endoscopy and capsule endoscopy without finding an obvious source of her blood loss. Past Medical History Past Medical History (Chronic Problems): Chronic Problems Pyelonephritis (Chronic) Lactic acidosis (Chronic) Steroid dependent (Chronic) Acute CHF (Chronic) PVD (peripheral vascular disease) (Chronic) Raynaud's phenomenon (Chronic) Insulin dependent diabetes mellitus (Chronic) Pulmonary hypertension (Chronic) Congestive heart failure with LV diastolic dysfunction, NYHA class 3 (Chronic) Moderate mitral regurgitation by prior echocardiogram (Chronic) on ECHO in December of 2014 Non-healing ulcer of left foot (Chronic) left foot History of thyroidectomy (Chronic) Acquired hypothyroidism (Chronic) S/P thyroidectomy for hyperthyroidism Osteoporosis (Chronic) Pancreatic cyst (Chronic) Diabetes mellitus type I (Chronic) Dermatomyositis (Chronic) Iliac artery thrombosis, bilateral (Chronic) S/P BL iliac stents History of hepatitis (Chronic) does not know what type Chronic renal failure, stage 3 (moderate) (Chronic) Anemia (Chronic) Benign essential hypertension (Chronic) Allergies sulfamethoxazole [From Bactrim] Allergy (Verified 11/24/17 00:28) Rash trimethoprim [From Bactrim] Allergy (Verified 11/24/17 00:28) Rash hydrocodone [From Vicodin] Adverse Reaction (Verified 11/24/17 00:28) Vomiting nafcillin Adverse Reaction (Verified 11/24/17 00:28) Vomiting Home Medications: Ambulatory Orders Medication Instructions Recorded Aspirin [Aspirin, Baby] 81 mg PO BREAKFAST 05/04/13 Ezetimibe [Zetia] 10 mg PO QHS 05/04/13 Levothyroxine [Synthroid] 100 mcg PO DAILY 05/04/13 Metoprolol(XL)Succ [Toprol Xl 25 mg PO DAILY 05/04/13 (Beta Karen)] Multivitamins,Therapeutic 1 tablet PO DAILY 05/04/13 [Multivitamin] Omeprazole [Prilosec] 20 mg PO DAILY 05/04/13 Warfarin [Coumadin] 2 mg PO DAILY 05/04/13 Insulin Regular, Human [Novolin R] 0 unit SC TIDCM 04/18/16 Folic Acid 100 mcg PO DAILY 06/03/16 Ondansetron [Zofran Odt] 4 mg PO Q8H PRN PRN #10 tablet 06/03/16 Insulin NPH Human Isophane 42 unit SQ DAILY 11/24/17 [Humulin N] Surgical History: - - Orthopedic surgery R ankle after fracture, BL iliac stents for iliac artery thrombosis, multiple finger and toe amputations, thyroidectomy, s/p CABG. Psychiatric History: No pertinent psych hx FRESH WORK INSPECTOR History: No pertinent FRESH WORK INSPECTOR history Smoking Status: Never smoker - *Family History Paternal History Items: Cancer - father at 79 with CA - unknow primary Maternal History Items: Heart Disease - mother at the age of 80 with MS and CHF Sibling History Items: Diabetes Review of Systems Constitutional: Reports: Fatigue. Denies: Chills, Fever, Weight Change Hematologic/ Lymphatic: Reports: Easy Bruising, Easy Bleeding Patient Problems: Active and Suspected Problems Acute on chronic anemia (Acute) Generalized weakness (Acute) - Physical Exam General: Alert, Oriented x3, Cooperative Lungs: Clear to auscultation, Normal air movement Cardiovascular: Regular rate, No murmurs Abdomen: Bowel Sounds Present, Soft, Non Tender Vital Signs Temp Pulse Resp BP Pulse Ox 98.4 F 102 H 18 131/60 H 98 11/24/17 08:19 11/24/17 08:19 11/24/17 08:19 11/24/17 08:19 11/24/17 08:19 Oxygen Flow Rate (L/min) 2 Oxygen Delivery Method Room Air Weight: 72.9 kg Body Mass Index (BMI) 27.1 Intake and Output for Last 24 Hours 11/22/17 11/23/17 11/24/17 23:59 23:59 23:59 Intake Total 766 / 766 Balance 766 / 766 POC Glucose 11/24/17 05:58 POC Glucose 461 H* Assessment/Plan Active and Suspected Problems Acute on chronic anemia (Acute) Generalized weakness (Acute) anemia, coumadin toxicity, ? GI source I plan to perform upper and lower endoscopy. The risks, benefits, alternatives and possible complications were discussed with the patient. the patient consents to this procedure. She is currently hemodynamically stable. the patient will be receiving fresh frozen plasma and packed red cells. We will follow her INR and hemoglobin and transfuse as necessary.
--- NOTE | 2017-11-24 08:35 | CON.PCM_ITS ---
Reason for Consult Date of Consultation: 11/24/17 History of Present Illness: The patient is a 67 year old F with a known history of recurrent anemia with multiple medical issues including cardiac arrest after IVIG infusion. She is on chronic anticoagulation with coumadin. She noted increasing fatigue. She presented to [facility] ER and was found to have a Hgb of 5 and and INR of 11. She was admitted for transfusion and FFP administration and I was consulted. She has had prior upper and lower endoscopy and capsule endoscopy without finding an obvious source of her blood loss. Past Medical History Past Medical History (Chronic Problems): Chronic Problems Pyelonephritis (Chronic) Lactic acidosis (Chronic) Steroid dependent (Chronic) Acute CHF (Chronic) PVD (peripheral vascular disease) (Chronic) Raynaud's phenomenon (Chronic) Insulin dependent diabetes mellitus (Chronic) Pulmonary hypertension (Chronic) Congestive heart failure with LV diastolic dysfunction, NYHA class 3 (Chronic) Moderate mitral regurgitation by prior echocardiogram (Chronic) on ECHO in December of 2014 Non-healing ulcer of left foot (Chronic) left foot History of thyroidectomy (Chronic) Acquired hypothyroidism (Chronic) S/P thyroidectomy for hyperthyroidism Osteoporosis (Chronic) Pancreatic cyst (Chronic) Diabetes mellitus type I (Chronic) Dermatomyositis (Chronic) Iliac artery thrombosis, bilateral (Chronic) S/P BL iliac stents History of hepatitis (Chronic) does not know what type Chronic renal failure, stage 3 (moderate) (Chronic) Anemia (Chronic) Benign essential hypertension (Chronic) Allergies sulfamethoxazole [From Bactrim] Allergy (Verified 11/24/17 00:28) Rash trimethoprim [From Bactrim] Allergy (Verified 11/24/17 00:28) Rash hydrocodone [From Vicodin] Adverse Reaction (Verified 11/24/17 00:28) Vomiting nafcillin Adverse Reaction (Verified 11/24/17 00:28) Vomiting Home Medications: Ambulatory Orders Medication Instructions Recorded Aspirin [Aspirin, Baby] 81 mg PO BREAKFAST 05/04/13 Ezetimibe [Zetia] 10 mg PO QHS 05/04/13 Levothyroxine [Synthroid] 100 mcg PO DAILY 05/04/13 Metoprolol(XL)Succ [Toprol Xl 25 mg PO DAILY 05/04/13 (Beta Karen)] Multivitamins,Therapeutic 1 tablet PO DAILY 05/04/13 [Multivitamin] Omeprazole [Prilosec] 20 mg PO DAILY 05/04/13 Warfarin [Coumadin] 2 mg PO DAILY 05/04/13 Insulin Regular, Human [Novolin R] 0 unit SC TIDCM 04/18/16 Folic Acid 100 mcg PO DAILY 06/03/16 Ondansetron [Zofran Odt] 4 mg PO Q8H PRN PRN #10 tablet 06/03/16 Insulin NPH Human Isophane 42 unit SQ DAILY 11/24/17 [Humulin N] Surgical History: - - Orthopedic surgery R ankle after fracture, BL iliac stents for iliac artery thrombosis, multiple finger and toe amputations, thyroidectomy, s/p CABG. Psychiatric History: No pertinent psych hx EXECUTIVE ADVISOR History: No pertinent EXECUTIVE ADVISOR history Smoking Status: Never smoker - *Family History Paternal History Items: Cancer - father at 79 with CA - unknow primary Maternal History Items: Heart Disease - mother at the age of 80 with KS and CHF Sibling History Items: Diabetes Review of Systems Constitutional: Reports: Fatigue. Denies: Chills, Fever, Weight Change Hematologic/ Lymphatic: Reports: Easy Bruising, Easy Bleeding Patient Problems: Active and Suspected Problems Acute on chronic anemia (Acute) Generalized weakness (Acute) - Physical Exam General: Alert, Oriented x3, Cooperative Lungs: Clear to auscultation, Normal air movement Cardiovascular: Regular rate, No murmurs Abdomen: Bowel Sounds Present, Soft, Non Tender Vital Signs Temp Pulse Resp BP Pulse Ox 98.4 F 102 H 18 131/60 H 98 11/24/17 08:19 11/24/17 08:19 11/24/17 08:19 11/24/17 08:19 11/24/17 08:19 Oxygen Flow Rate (L/min) 2 Oxygen Delivery Method Room Air Weight: 72.9 kg Body Mass Index (BMI) 27.1 Intake and Output for Last 24 Hours 11/22/17 11/23/17 11/24/17 23:59 23:59 23:59 Intake Total 766 / 766 Balance 766 / 766 POC Glucose 11/24/17 05:58 POC Glucose 461 H* Assessment/Plan Active and Suspected Problems Acute on chronic anemia (Acute) Generalized weakness (Acute) anemia, coumadin toxicity, ? GI source I plan to perform upper and lower endoscopy. The risks, benefits, alternatives and possible complications were discussed with the patient. the patient consents to this procedure. She is currently hemodynamically stable. the patient will be receiving fresh frozen plasma and packed red cells. We will follow her INR and hemoglobin and transfuse as necessary.
[2017-11-24] MEDS: Metoprolol(XL)Succ 25 MG Tablet PO (09:45)
[2017-11-24 11:50] LABS: Bedside Glucose 73 mg/dL (70-110)
[2017-11-24 14:35] LABS: Hematocrit 23.4 % (37-47); Hemoglobin 7.6 g/dl (12.0-15.0); Mean Corp Hgb Conc 32.5 g/gl (32-36); Mean Corpuscular Hgb 30.3 pg (27.0-32.0); Mean Corpuscular Volume 93.2 fL (81-99); Mean Platelet Vol. 10.3 fl (6.2-12.0); Platelet Count 234 K/mm3 (150-450); RBC Distribution Width CV 15.7 % (11.6-14.6); RBC Distribution Width SD 48.2 fl (35.1-43.9); Red Blood Count 2.51 M/mm3 (4.2-5.4); Scan Indicated on CBC? Y/N NO; White Blood Count 8.6 K/mm3 (4.4-11.0)
[2017-11-24 14:43] LABS: Prothrombin Time (Protime)PT. 44.2 SECONDS (11.7-14.9)
[2017-11-24 14:46] LABS: International Normalized Ratio 4.6
[2017-11-24 14:55] LABS: Hemoglobin A1c 5.7 % (4.2-6.3)
[2017-11-24 15:05] LABS: Anion Gap 8 (5-15); BUN 48 mg/dL (7-18); BUN/Creat Ratio 37.8 RATIO (10-20); Calcium,Total 7.7 mg/dL (8.5-10.1); Chloride 116 mmol/L (98-107); Creatinine, Serum 1.27 mg/dL (0.55-1.02); EST Glomerular Filtration Rate 45 mL/min (>60); Est Glom Filt Rate - Afr Amer 54 mL/min (>60); Estimated Creatinine Clearance 37.12 ml/min; Glucose 72 mg/dL (74-106); Potassium 3.4 mmol/L (3.5-5.1); Sodium Level 148 mmol/L (136-145); T4 Free Direct 1.34 ng/dL (0.76-1.46); Thyroid Stim Hormone (TSH) 2.63 uIU/mL (0.358-3.74)
[2017-11-24] MEDS: Electrolyte Solution/Peg's 4000 ML PO (16:22)
[2017-11-24] MEDS: Phytonadione (Vit K) 10 MG/ML Ampul 5 MG PO (16:52)
[2017-11-24 17:10] LABS: Bedside Glucose 38 mg/dL (70-110)
[2017-11-24 19:06] LABS: Bedside Glucose 95 mg/dL (70-110)
[2017-11-24 19:06] LABS: Bedside Glucose 154 mg/dL (70-110)
[2017-11-24] MEDS: Ezetimibe 10 MG Tablet PO (21:20)
[2017-11-24 21:40] LABS: Bedside Glucose 106 mg/dL (70-110)
[2017-11-24 23:40] LABS: Bedside Glucose 48 mg/dL (70-110)
[2017-11-25] VITALS (17 sets, daily range): BP systolic 99–156; BP diastolic 45–65; PULSE 79–94; RESP 14–20; TEMP 36.7–37.3; O2SAT 92–99; BMI 27.1
--- NOTE | 2017-11-25 | EGD_PTH ---
PATIENT: ABNER GARCIA LOC: U U#:[id number] AGE/SX: 67/F ROOM: [facility] RE11/24/[address]: Dr. Claire Olivera MD : 1950 BED: 1 DIS: 11/26/2017 SPEC #: [id number] RECD: 11/25/17 15:20 STATUS: RANDAL REQ #: [id number] MATT: 11/25/17 00:[address]: Palmer Ordonez DEPT: SURGICAL PATHOLOGY RECD BY: Aly Arizmendi ENTERED: 11/26/17 08:13 SP TYPE: EGD BIOPSY OTHR DR: MD Dr. Laura Ruiz MD Dr. Prakash Chand, MD Dr. Richard Guttman, MD Tissues: Gastric mucous membrane Procedures: Surgery Specimen Level IV Comments: @ Ordering doctor for SUIV edited from to @ by TOMI at 11/27/17 1119 @ Submitting doctor edited from to @ by TOMI at 11/27/17 1119 HEADER OPERATION: EGD PRE-OP DIAGNOSIS: Anemia TISSUE SUBMITTED: Antral biopsy for histo and H. Pylori MICROSCOPIC DIAGNOSIS Antrum, biopsy: Mild gastritis. SJ:fabiola 11/27/17 COMMENT The results of immunohistochemistry for Helicobacter pylori will be reported separately ([id number]). MICROSCOPIC DESCRIPTION Slides are reviewed. The specimen shows fragments of gastric mucosa with chronic inflammatory cell infiltrates in the lamina propria consisting of lymphocytes and plasma cells, consistent with mild chronic gastritis. GROSS DESCRIPTION Received in fixative is one container labeled with the patient's name and designated antrum. The specimen consists of one irregular fragment of light hager soft tissue that measures 0.3 x 0.3 x 0.1 cm. The specimen is totally submitted in one cassette. / RY:fabiola 11/26/17 TC:3 CPT: 22973
--- NOTE | 2017-11-25 | IMM_PTH ---
PATIENT: ABNER GARCIA LOC: [facility] U#:[id number] AGE/SX: 67/F ROOM: [facility] RE11/24/[address]: Dr. Claire Olivera MD : 1950 BED: 1 DIS: 11/26/2017 SPEC #: [id number] RECD: 11/27/17 11:18 STATUS: SOUT REQ #: [id number] MATT: 11/25/17 00:[address]: Palmer Ordonez DEPT: IMMUNOHISTOCHEMISTRY RECD BY: Jenny Somers ENTERED: 11/27/17 11:18 SP TYPE: IMMUNO OTHR DR: MD Dr. Laura Ruiz MD Dr. Prakash Chand, MD Tissues: Stomach, NOS Procedures: H Pylori (initial) Comments: @ Ordering doctor for H.PYLORI edited from to @ by TOMI at 11/27/17 1119 @ Submitting doctor edited from to DR.[email or web address] Gonsalves by TOMI at 11/27/17 1119 PHYSICIAN & INSTITUTION [place] [id number] SPECIMEN INFORMATION: Tissue Source: Antral biopsy Clinical Info: Louisa Specimen Number: [id number] CPT code: 45754 METHODOLOGY: Deparaffinized sections of prefer/formalin-fixed tissue or PAP/DQ stained slides are incubated with monoclonal/polyclonal antibodies/oligonucleotide probes. Localization is made via biotin free immunoperoxidase method. Appropriate controls are performed and reacted as expected. Results on target cell population are indicated in the following table: RESULTS: ANTIBODY / CLONE RESULT H Pylori (polyclonal) negative These tests were developed and their performance characteristics determined by [facility]. They may not have been cleared or approved by the [place]. Food and Drug Administration. The FDA has determined that such clearance or approval is not necessary. INTERPRETATION: Antrum, biopsy: Negative for Helicobacter pylori organisms. SJ:fabiola 11/28/17
[2017-11-25 00:26] LABS: Bedside Glucose 69 mg/dL (70-110)
[2017-11-25 03:11] LABS: Bedside Glucose 90 mg/dL (70-110)
[2017-11-25] MEDS: 0.9% Normal Saline 1,000 ML 100 ML IV (05:51)
[2017-11-25 06:44] LABS: Absolute Neutrophil Count 5.4 X10^3/uL (2.0-7.7); Basophil# 0.03 X10^3/uL; Basophil% 0.4 % (0-1); Eosinophil# 0.38 X10^3/uL; Eosinophils% 4.8 % (0-5); Hematocrit 28.9 % (37-47); Hemoglobin 9.3 g/dl (12.0-15.0); Lymphocyte % 16.5 % (19-41); Mean Corp Hgb Conc 32.2 g/gl (32-36); Mean Corpuscular Hgb 29.4 pg (27.0-32.0); Mean Corpuscular Volume 91.5 fL (81-99); Mean Platelet Vol. 10.8 fl (6.2-12.0); Monocyte% 10.1 % (0-10); Neutrophil # 5.36 X10^3/uL (2.7-7.7); Neutrophil % 67.9 % (47-70); POSITIVE COUNT NO; POSITIVE DIFFERENTIAL NO; POSITIVE MORPHOLOGY NO; Platelet Count 223 K/mm3 (150-450); RBC Distribution Width CV 16.4 % (11.6-14.6); RBC Distribution Width SD 52.6 fl (35.1-43.9); Red Blood Count 3.16 M/mm3 (4.2-5.4); White Blood Count 7.9 K/mm3 (4.4-11.0)
[2017-11-25 06:48] LABS: Anion Gap 7 (5-15); BUN 27 mg/dL (7-18); BUN/Creat Ratio 27.8 RATIO (10-20); Chloride 117 mmol/L (98-107); Creatinine, Serum 0.97 mg/dL (0.55-1.02); EST Glomerular Filtration Rate 61 mL/min (>60); Est Glom Filt Rate - Afr Amer 74 mL/min (>60); Glucose 52 mg/dL (74-106); Potassium 3.8 mmol/L (3.5-5.1); Sodium Level 145 mmol/L (136-145)
[2017-11-25 06:54] LABS: International Normalized Ratio 2.3; Prothrombin Time (Protime)PT. 25.8 SECONDS (11.7-14.9)
[2017-11-25 07:11] LABS: Bedside Glucose 45 mg/dL (70-110)
[2017-11-25] MEDS: Dextrose 50%-Water 25 GM/50 ML DISP.SYRIN IV (07:14)
--- NOTE | 2017-11-25 10:50 | CASEMGMT ---
Face to Face with patient for initial transition planning/care coordination assessment. MALIKA CONNOR introduced self and role at [facility], pt voices understanding and consents to assessment at this time. Pt is sitting up in bed in no distress at this time. Pt is A/O x4 at this time and answers all questions appropriately at this time. Care providers, pharmacy, and demographics verified. See attached link. Pt voices no further concerns/needs at this time. Advised pt to ask for CM if any further questions/concerns/needs arise, voices understanding. Referral to Juan SALDIVAR at this time, re: pt recent loss of , voices understanding. PLAN: [place] MALIKA CONNOR
[2017-11-25 10:55] LABS: Bedside Glucose 113 mg/dL (70-110)
[2017-11-25] MEDS: Dextrose 5%/0.9% NaCl 1,000 ML 75 ML IV (11:09)
--- NOTE | 2017-11-25 11:11 | PN_ITS ---
Patient Problems: Active and Suspected Problems Acute on chronic anemia (Acute) Generalized weakness (Acute) Subjective: Patient was seen and examined. Denies any complaints. Denies any dizziness or chest pain or palpitation. Denies any hematemesis or melena or hematochezia. Admits to history of recurrent workup for anemia with unclear etiology. She has been transfused 3 units of packed RBCs as well as 1 unit of FFP. She will be going for an EGD and colonoscopy by Dr. Ordonez. Vitals/I&O's: Vital Signs Temp Pulse Resp BP Pulse Ox 98.5 F 85 14 110/56 L 93 11/25/17 05:55 11/25/17 07:30 11/25/17 05:55 11/25/17 05:55 11/25/17 07:50 Oxygen Flow Rate (L/min) 2 Oxygen Delivery Method Room Air Weight: 71.8 kg Body Mass Index (BMI) 27.1 Intake and Output for Last 24 Hours 11/23/17 11/24/17 11/25/17 23:59 23:59 23:59 Intake Total 5200 / 5200 5601 / 5601 Output Total 1700 / 1700 Balance 3500 / 3500 5601 / 5601 General: Alert, Oriented x3, Cooperative HEENT: Atraumatic, PERRLA, EOMI, Normocephalic Oral: Moist Mucosa Neck: Supple Lungs: Clear to auscultation, Normal air movement Cardiovascular: Regular rate, Regular Rhythm, Normal S1, Normal S2, No murmurs Abdomen: Bowel Sounds Present, Soft, Non Tender, Non-Distended, No Hepato- splenomegaly Extremities: - - Generalized trace 2+1 edema, deformity of both lower extremities(feet), right hand deformity with the fifth distal phalange Skin: No rashes, No breakdown Musculoskeletal: No Tenderness to Palpation of Joints or Extremities Neurological: Cranial nerves II-XII grossly intact Psych/Mental Status: Normal Affect, Appropriate Laboratory Results 11/24/17 11:46: POC Glucose 73 11/24/17 14:26: Sodium 148 H, Potassium 3.4 L, Chloride 116 H, Carbon Dioxide 24.0, Anion Gap 8, BUN 48 H, Creatinine 1.27 H, Estim Creat Clear Calc 37.12, Est GFR (MDRD) Af Amer 54 L, Est GFR (MDRD) Non-Af 45 L, BUN/Creatinine Ratio 37.8 H, Glucose 72 L, Calcium 7.7 L, TSH 2.63, Free T4 1.34 11/24/17 14:26: WBC 8.6, RBC 2.51 L, Hgb 7.6 L, Hct 23.4 L, MCV 93.2, MCH 30.3, MCHC 32.5, RDW 15.7 H, RDW Differential 48.2 H, Plt Count 234, MPV 10.3 11/24/17 14:26: PT 44.2 H, INR 4.6 H* 11/24/17 14:26: Hemoglobin A1c 5.7 11/24/17 16:54: POC Glucose 38 L* 11/24/17 17:47: POC Glucose 95 11/24/17 19:00: POC Glucose 154 H 11/24/17 21:17: POC Glucose 106 11/24/17 23:34: POC Glucose 48 L 11/25/17 00:19: POC Glucose 69 L 11/25/17 03:03: POC Glucose 90 11/25/17 05:40: WBC 7.9, RBC 3.16 L, Hgb 9.3 L, Hct 28.9 L, MCV 91.5, MCH 29.4, MCHC 32.2, RDW 16.4 H, RDW Differential 52.6 H, Plt Count 223, MPV 10.8, Immature Gran % (Auto) 0.300, Neut % (Auto) 67.9, Lymph % (Auto) 16.5 L, Hudspeth % (Auto) 10.1 H, Eos % (Auto) 4.8, Baso % (Auto) 0.4, Absolute Neuts (auto) 5.4, Absolute Lymphs (auto) 1.30, Total Counted Not Reportable 11/25/17 05:40: PT 25.8 H, INR 2.3 11/25/17 05:40: Sodium 145, Potassium 3.8, Chloride 117 H, Carbon Dioxide 21.0, Anion Gap 7, BUN 27 H, Creatinine 0.97, Estim Creat Clear Calc 48.60, Est GFR ( MDRD) Af Amer 74, Est GFR (MDRD) Non-Af 61, BUN/Creatinine Ratio 27.8 H, Glucose 52 L, Calcium 7.0 L 11/25/17 07:03: POC Glucose 45 L 11/25/17 10:53: POC Glucose 113 H Current Medications Dextrose (D50w Syringe) 0 gm IV X1 PRN; Protocol PRN Reason: Hypoglycemia Last Admin: 11/25/17 07:14 Dose: 25 gm Ezetimibe (Zetia) 10 mg PO QHS [facility] Last Admin: 11/24/17 21:20 Dose: 10 mg Glucagon () 1 mg IM .X1 PRN PRN Reason: Hypoglycemia Pantoprazole Sodium 40 mg/ (Sodium Chloride) 110 mls @ 330 mls/hr IV Q12 JORDYN Last Admin: 11/25/17 10:22 Dose: 330 mls/hr Dextrose/Sodium Chloride (Dextrose 5%/0.9% Nacl) 1,000 mls @ 75 mls/hr IV .[id number] [facility] Last Admin: 11/25/17 11:09 Dose: 75 mls/hr Insulin Aspart (Novolog Flexpen (Bkc)) 0 units SC ACHS & 3AM JORDYN PRN Reason: Protocol Last Admin: 11/25/17 07:39 Dose: Not Given Magnesium Hydroxide (Milk Of Magnesia) 30 ml PO DAILY PRN PRN Reason: Constipation Metoprolol Succinate (Toprol Xl (Beta Karen)) 25 mg PO DAILY [facility] Last Admin: 11/24/17 09:45 Dose: 25 mg Nutritional Formula (Lactose Free) (Glucerna Shake) 120 ml PO 4X/DAY [facility] Last Admin: 11/25/17 10:20 Dose: Not Given Ondansetron HCl (Zofran) 4 mg IV Q4H PRN PRN PRN Reason: NAUSEA Promethazine HCl (Phenergan) 12.5 mg IV Q6H PRN PRN PRN Reason: NAUSEA/VOMITING Senna/Docusate Sodium (Senokot-S, Erika-Colace) 2 tablet PO BID PRN PRN PRN Reason: Constipation Sodium Chloride () 5 - 30 ml IV UD PRN PRN Reason: SALINE FLUSH Zolpidem Tartrate (Ambien (Generic)) 5 mg PO QHS PRN PRN PRN Reason: INSOMNIA Medical Necessity - Tobacco Use Smoking Status: Never smoker Assessment/Plan Active and Suspected Problems Acute on chronic anemia (Acute) Generalized weakness (Acute) 67-year-old with multiple comorbidities including anemia of unclear etiology, status post multiple workup in the [facility], admitted with feeling of unwell, dizziness and nausea and vomiting and found to have hemoglobin of 5. 1. Acute severe anemia, most probably acute blood loss anemia from GI bleed on baseline chronic anemia, status post packed RBC transfusion, going for EGD and colonoscopy today, hemoglobin is stable at 9.3, on IV PPI BID, will follow up on procedure finding, labs in a.m. 2. Hypercoagulopathy secondary to Coumadin, admitting INR was 4.8, status post vitamin K and FFP, INR this morning is 2.3, , history of bilateral iliac artery thrombosis status post bilateral iliac stents. 3. Diabetes mellitus type 2 on insulin, blood sugars are low, started on D5 normal saline, n.p.o. for procedure, continue with accucheks, resume diet if cleared by surgery after procedure. 4. Chronic diastolic heart failure/coronary artery disease status post quadruple bypass/mild to moderate mitral insufficiency/TR, severe pulmonary hypertension, last 2D echo shows an EF of 20% with stage I diastolic dysfunction severe mid anterior apical kinesis, no signs of acute exacerbation, needs to follow-up closely with cardiology. 5. Acute kidney injury on CKD stage III, secondary to hypovolemia and acute anemia, resolved, at baseline 6. PAD, history of bilateral iliac artery thrombosis status post bilateral iliac stents, on aspirin and Coumadin( on hold now) 7. Recent admission for severe sepsis secondary to UTI/bacteroides bacteremia, completed IV ertapenem on 11/16/17 8. DVT PPx - INR is therapeutic 9. Disposition; pending findings from procedures and general surgery recommendation, would ask PT/OT to see after procedure and identify skilled needs. Code Visit Inpatient E&M: 94727 Subs Hosp L3
--- NOTE | 2017-11-25 11:21 | NURSING ---
Per request by Dr. Olivera, Dr. Ordonez was notified of INR 2.3. No new orders given.
--- NOTE | 2017-11-25 15:06 | CASEMGMT ---
Social Work Note SW attempted to see pt for grief support as pt recently lost her . Pt not currently in room. SW will follow up with pt tomorrow for grief support and to assist needs. Plan: Discharge home Kimberlyn Giraldo [employer]OWROOM EXECUTIVE DIRECTOR, [employer]
[2017-11-25 15:16] LABS: Bedside Glucose 254 mg/dL (70-110)
--- NOTE | 2017-11-25 15:20 | OP.PCM_ITS ---
Report of Operation Date of Procedure: 11/25/17 Pre-Operative Diagnosis: anemia, Coumadin toxicity, negative previous source for GI bleeds Post-Operative Diagnosis: anemia, Coumadin toxicity, negative previous source for GI bleeds, normal upper endoscopy, normal colonoscopy Surgery/Procedure Performed:: EGD biopsy, colonoscopy butane compressor operator: None Type of Anesthesia:: MAC Anesthesiologist: Antwan Brantley - ASA3 Specimen's removed: gastric Description of Procedure: The patient was brought to the endoscopy suite. Sign in was performed verifying patient, site, planned procedure, critical nursing information, the patient was monitored with cardiac, pulse oximetric, and blood pressure monitoring devices. Monitored anesthetic care was provided for sedation. Following IV sedation and after the oropharynx was sprayed with Cetacaine spray , a video gastroscope was inserted in the oropharynx and advanced down the esophagus without difficulty. The scope was advanced through the stomach, through the pylorus through the duodenum to the proximal jejunum. the jejunum was unremarkable. The duodenum was unremarkable. The stomach was unremarkable with possibly very minimal gastritis. A biopsy is obtained for H. pylori and pathology. The scope was retroflexed. This was unremarkable. The GE junction was unremarkable. The remainder the esophagus was unremarkable. The patient was positioned for colonoscopy. A digital rectal exam was performed which revealed palpable abnormalities The video colonoscope was inserted and advanced to the cecum as verified by the ileocecal valve, cecal base anatomic features and palpation. the entire colon. Retroflexion was unremarkable. There were no signs of bleeding noted. The patient tolerated the procedure well and was brought to recovery in stable condition
--- NOTE | 2017-11-25 15:30 | PN.SURG_ITS ---
Patient Problems: Active and Suspected Problems Acute on chronic anemia (Acute) Generalized weakness (Acute) - Physical Exam General: Alert, Oriented x3 Lungs: Clear to auscultation, Normal air movement Cardiovascular: Regular rate, Regular Rhythm Abdomen: Bowel Sounds Present, Soft, Non Tender Vital Signs Temp Pulse Resp BP Pulse Ox 98.4 F 92 16 134/54 H 93 11/25/17 15:00 11/25/17 15:00 11/25/17 15:00 11/25/17 15:00 11/25/17 15:00 Oxygen Flow Rate (L/min) 2 Oxygen Delivery Method Room Air Weight: 71.8 kg Body Mass Index (BMI) 27.1 Finger Stick Blood Glucose 254 Intake and Output for Last 24 Hours 11/23/17 11/24/17 11/25/17 23:59 23:59 23:59 Intake Total 5200 / 5200 6401 / 6401 Output Total 1700 / 1700 Balance 3500 / 3500 6401 / 6401 Laboratory Tests Past 24 Hrs 11/25/17 11/25/17 11/25/17 05:40 05:40 05:40 WBC 7.9 RBC 3.16 L Hgb 9.3 L Hct 28.9 L MCV 91.5 MCH 29.4 MCHC 32.2 RDW 16.4 H RDW Differential 52.6 H Plt Count 223 MPV 10.8 Immature Gran % (Auto) 0.300 Neut % (Auto) 67.9 Lymph % (Auto) 16.5 L Antelope % (Auto) 10.1 H Eos % (Auto) 4.8 Baso % (Auto) 0.4 Absolute Neuts (auto) 5.4 Absolute Lymphs (auto) 1.30 Total Counted Not Reportable PT 25.8 H INR 2.3 Sodium 145 Potassium 3.8 Chloride 117 H Carbon Dioxide 21.0 Anion Gap 7 BUN 27 H Creatinine 0.97 Estim Creat Clear Calc 48.60 Est GFR (MDRD) Af Amer 74 Est GFR (MDRD) Non-Af 61 BUN/Creatinine Ratio 27.8 H Glucose 52 L Calcium 7.0 L POC Glucose 11/25/17 11/25/17 11/25/17 15:05 10:53 07:03 POC Glucose 254 H 113 H 45 L 11/25/17 11/25/17 11/24/17 03:03 00:19 23:34 POC Glucose 90 69 L 48 L 11/24/17 11/24/17 11/24/17 21:17 19:00 17:47 POC Glucose 106 154 H 95 11/24/17 16:54 POC Glucose 38 L* Medical Necessity - Tobacco Use Smoking Status: Never smoker Assessment/Plan Active and Suspected Problems Acute on chronic anemia (Acute) Generalized weakness (Acute) anemia, coumadin toxicity, ? GI source I performed upper and lower endoscopy. the patient's upper and lower endoscopy are both unremarkable. I performed biopsies of the antral region of the stomach. The patient follow-up in my office with my physician's secretary administrative assistant Corinna Luciano in one week.
[2017-11-25] MEDS: Metoprolol(XL)Succ 25 MG Tablet PO (16:02)
[2017-11-25] MEDS: Ezetimibe 10 MG Tablet PO (23:26)
[2017-11-25 23:36] LABS: Bedside Glucose 276 mg/dL (70-110)
[2017-11-26] VITALS (7 sets, daily range): BP systolic 119–143; BP diastolic 56–74; PULSE 80–94; RESP 16–18; TEMP 36.6–37.2; O2SAT 94–97
[2017-11-26] MEDS: Dextrose 5%/0.9% NaCl 1,000 ML 75 ML IV (03:09)
[2017-11-26 03:11] LABS: Bedside Glucose 227 mg/dL (70-110)
[2017-11-26 07:05] LABS: Bedside Glucose 222 mg/dL (70-110)
--- NOTE | 2017-11-26 07:16 | PN.SURG_ITS ---
Patient Problems: Active and Suspected Problems Acute on chronic anemia (Acute) Generalized weakness (Acute) Subjective: no complaints - Physical Exam General: Alert, Oriented x3 Vital Signs Temp Pulse Resp BP Pulse Ox 99.0 F 83 18 119/56 L 94 11/26/17 03:10 11/26/17 03:30 11/26/17 03:10 11/26/17 03:10 11/26/17 03:10 Oxygen Flow Rate (L/min) 2 Oxygen Delivery Method Room Air Weight: 81.4 kg Body Mass Index (BMI) 27.1 Finger Stick Blood Glucose 254 Intake and Output for Last 24 Hours 11/24/17 11/25/17 11/26/17 23:59 23:59 23:59 Intake Total 5200 / 5200 6401 / 6401 1914 Output Total 1700 / 1700 Balance 3500 / 3500 6401 / 6401 1914 POC Glucose 11/26/17 11/26/17 11/25/17 06:58 02:58 23:20 POC Glucose 222 H 227 H 276 H 11/25/17 11/25/17 15:05 10:53 POC Glucose 254 H 113 H Medical Necessity - Tobacco Use Smoking Status: Never smoker Assessment/Plan Active and Suspected Problems Acute on chronic anemia (Acute) Generalized weakness (Acute) anemia, coumadin toxicity, ? GI source I performed upper and lower endoscopy. the patient's upper and lower endoscopy are both unremarkable. I performed biopsies of the antral region of the stomach. The patient follow-up in my office with my physician's executive chef assistant Corinna Luciano in one week.
[2017-11-26 09:53] LABS: Pathologist Review Reviewed
--- NOTE | 2017-11-26 10:11 | CASEMGMT ---
SW spoke with patient. Introduced self and role at [facility]. YARIEL told her SW wanted to check in with her regarding the loss of her . Patient said she is coping as well as can be expected. She has a step son and daughter in law in the area. She has a sister, but she lives in [place]. SW told her about [facility] program. She was very open to taking the pamphlet. She did not know about this program and said she would consider it. YARIEL told her if she felt she would like to talk to SW at anytime she just needs to ask. She thanked SW for checking in with her. Leyla BUNCH MSW
[2017-11-26] MEDS: Glucerna Shake 120 ML LIQUID PO (10:56)
[2017-11-26] MEDS: Metoprolol(XL)Succ 25 MG Tablet PO (10:56)
[2017-11-26 10:58] LABS: Absolute Lymphocyte Count 0.83 X10^3/ul (0.83-4.51); Absolute Neutrophil Count 5.9 X10^3/uL (2.0-7.7); Basophil# 0.02 X10^3/uL; Basophil% 0.3 % (0-1); Eosinophil# 0.24 X10^3/uL; Eosinophils% 3.1 % (0-5); Hematocrit 27.9 % (37-47); Lymphocyte # 0.83 X10^3/ul (4.0); Lymphocyte % 10.8 % (19-41); Mean Corp Hgb Conc 32.3 g/gl (32-36); Mean Corpuscular Hgb 30.5 pg (27.0-32.0); Mean Corpuscular Volume 94.6 fL (81-99); Mean Platelet Vol. 10.8 fl (6.2-12.0); Monocyte# 0.71 X10^3/uL; Monocyte% 9.2 % (0-10); Neutrophil % 76.3 % (47-70); Platelet Count 197 K/mm3 (150-450); RBC Distribution Width CV 16.6 % (11.6-14.6); RBC Distribution Width SD 53.7 fl (35.1-43.9); Red Blood Count 2.95 M/mm3 (4.2-5.4); White Blood Count 7.7 K/mm3 (4.4-11.0)
[2017-11-26 10:59] LABS: POSITIVE COUNT NO; POSITIVE DIFFERENTIAL NO; POSITIVE MORPHOLOGY NO
[2017-11-26 11:21] LABS: Bedside Glucose 362 mg/dL (70-110)
--- NOTE | 2017-11-26 11:45 | PCM.DC ---
- Discharge Diagnoses Current Active Problems: Current Active and Chronic Problems Acute on chronic anemia (Acute) Generalized weakness (Acute) Reason(s) for Visit for Discharge Instructions: Severe anemia You will use the following diet at home:: Cardiac Your food should be the consistency of: Regular Your liquids should be the consistency of: Regular/Thin Discharge Activity: Return to Normal Activity Additional Instructions: Please come back to the ED if you notice any black stools or bright red bleeding per rectum. You need to follow-up with the vascular team to have them re-evaluate need for coumadin and aspirin together as you have an increased risk of bleeding. Monitor your blood sugar and show a log of your readings to your PCP when you follow-up Allergies/Adverse Reactions: Allergies sulfamethoxazole [From Bactrim] Allergy (Verified 11/24/17 00:28) Rash trimethoprim [From Bactrim] Allergy (Verified 11/24/17 00:28) Rash hydrocodone [From Vicodin] Adverse Reaction (Verified 11/24/17 00:28) Vomiting nafcillin Adverse Reaction (Verified 11/24/17 00:28) Vomiting Medications to take at Discharge Aspirin [Aspirin, Baby] 81 mg PO BREAKFAST 05/04/13 Ezetimibe [Zetia] 10 mg PO QHS 05/04/13 Levothyroxine [Synthroid] 100 mcg PO DAILY 05/04/13 Metoprolol(XL)Succ [Toprol Xl (Beta Karen)] 25 mg PO DAILY 05/04/13 Multivitamins,Therapeutic [Multivitamin] 1 tablet PO DAILY 05/04/13 Omeprazole [Prilosec] 20 mg PO DAILY 05/04/13 Insulin Regular, Human [Novolin R] 0 unit SC TIDCM 04/18/16 Folic Acid 100 mcg PO DAILY 06/03/16 Ondansetron [Zofran Odt] 4 mg PO Q8H PRN PRN #10 tablet 06/03/16 Insulin NPH Human Isophane [Humulin N] 42 unit SQ DAILY 11/24/17 Glucerna Shake 120 ml PO 4X/DAY #100 liquid 11/26/17 Warfarin [Coumadin] 2 mg PO DAILY #30 tab 11/26/17 The following prescriptions were given: Warfarin [Coumadin] 2 mg PO DAILY #30 tab Glucerna Shake 120 ml PO 4X/DAY #100 liquid Orders to be completed after discharge: CBC W/Diff, Automated Location: Laboratory Primary Care Physician: Laura Calvillo MD [Primary Care Provider] - Please follow up with your Primary Care Physician in: within 1 week for INR draw Please Follow Up With: Palmer Ordonez MD When: 1 week Proposed Discharge Date: 11/26/17
--- NOTE | 2017-11-26 13:53 | DS.PCM_ITS ---
Discharge Date and Diagnosis Date of Admission: 11/24/17 Date of Discharge: 11/26/17 - Primary Discharge Diagnosis Active and Suspected Problems Acute on chronic anemia (Acute) Generalized weakness (Acute) - Secondary Discharge Diagnosis Chronic Problems Pyelonephritis (Chronic) Lactic acidosis (Chronic) Steroid dependent (Chronic) Acute CHF (Chronic) PVD (peripheral vascular disease) (Chronic) Raynaud's phenomenon (Chronic) Insulin dependent diabetes mellitus (Chronic) Pulmonary hypertension (Chronic) Congestive heart failure with LV diastolic dysfunction, NYHA class 3 (Chronic) Moderate mitral regurgitation by prior echocardiogram (Chronic) on ECHO in December of 2014 Non-healing ulcer of left foot (Chronic) left foot History of thyroidectomy (Chronic) Acquired hypothyroidism (Chronic) S/P thyroidectomy for hyperthyroidism Osteoporosis (Chronic) Pancreatic cyst (Chronic) Diabetes mellitus type I (Chronic) Dermatomyositis (Chronic) Iliac artery thrombosis, bilateral (Chronic) S/P BL iliac stents History of hepatitis (Chronic) does not know what type Chronic renal failure, stage 3 (moderate) (Chronic) Anemia (Chronic) Benign essential hypertension (Chronic) Hospital Course and Treatment General surgery Operations: None Procedures: Colonoscopy, EGD Summary of Care Provided: 67-year-old with multiple comorbidities including anemia of unclear etiology, status post multiple workup in the [facility], admitted with feeling of unwell, dizziness and nausea and vomiting and found to have hemoglobin of 5. 1. Acute severe anemia,secondary to acute blood loss anemia from GI bleed ,on baseline chronic anemia, status post packed RBC transfusion, had EGD and colonoscopy done which showed no acute findings, hemoglobin remained stable at 9.0, patient is on PPI, will follow up with Dr. Ellis in the outpatient. 2. Hypercoagulopathy secondary to Coumadin, unclear reason why her INR went up, patient will need to follow-up closely with a primary care doctor. Explained to the patient that she needs to have a Coumadin reassessed to give a clear reason why this needs to be continued. 3. Diabetes mellitus type 2 on insulin, blood sugars are fairly stable, episode of hypoglycemia welch patient was kept n.p.o. for EGD and colonoscopy, blood sugars are stable and patient will resume her home insulin regimen. 4. Chronic diastolic heart failure/coronary artery disease status post quadruple bypass/mild to moderate mitral insufficiency/TR, severe pulmonary hypertension, last 2D echo shows an EF of 20% with stage I diastolic dysfunction severe mid anterior apical kinesis, no signs of acute exacerbation, needs to follow-up closely with cardiology. 5. Acute kidney injury on CKD stage III, secondary to hypovolemia and acute anemia, resolved 6. PAD, history of bilateral iliac artery thrombosis status post bilateral iliac stents, on aspirin and Coumadin 7. Recent admission for severe sepsis secondary to UTI/bacteroides bacteremia, completed IV ertapenem on 11/16/17, stable, no signs of sepsis in this admission. Discharge Diet: Low fat/ Low Cholesterol, 2000 mg Sodium Diet, Carb Control Diet Discharge Activity: Return to Normal Activity Home Medications: Medications to take at Discharge Aspirin [Aspirin, Baby] 81 mg PO BREAKFAST 05/04/13 Ezetimibe [Zetia] 10 mg PO QHS 05/04/13 Levothyroxine [Synthroid] 100 mcg PO DAILY 05/04/13 Metoprolol(XL)Succ [Toprol Xl (Beta Karen)] 25 mg PO DAILY 05/04/13 Multivitamins,Therapeutic [Multivitamin] 1 tablet PO DAILY 05/04/13 Omeprazole [Prilosec] 20 mg PO DAILY 05/04/13 Insulin Regular, Human [Novolin R] 0 unit SC TIDCM 04/18/16 Folic Acid 100 mcg PO DAILY 06/03/16 Ondansetron [Zofran Odt] 4 mg PO Q8H PRN PRN #10 tablet 06/03/16 Insulin NPH Human Isophane [Humulin N] 42 unit SQ DAILY 11/24/17 Glucerna Shake 120 ml PO 4X/DAY #100 liquid 11/26/17 Warfarin [Coumadin] 2 mg PO DAILY #30 tab 11/26/17 Following Prescrptions Were Given to Patient: Warfarin [Coumadin] 2 mg PO DAILY #30 tab Glucerna Shake 120 ml PO 4X/DAY #100 liquid Other Amb Orders: CBC W/Diff, Automated Location: Laboratory Primary Care Physician: Laura Calvillo MD [Primary Care Provider] - Please follow up with your Primary Care Physician in: within 1 week for INR draw Please Follow Up With: Palmer Ordonez MD When: 1 week Disposition: Home Minutes spent on discharge:: 45 Patient Condition:: Stable Medical Necessity - Tobacco Use Smoking Status: Never smoker Meaningful Use Info Meaningful Use Diagnoses (Choose all that apply): None applicable Code Visit Inpatient E&M: 22592 Disch Hosp
--- NOTE | 2017-11-26 14:39 | NURSING ---
Discharge instructions reviewed with pt and she states she is on mederol. This medication is not listed on her home med list. Dr. Calvillo office called and will fax med list.
--- NOTE | 2017-11-26 14:51 | CASEMGMT ---
This RN NIKOLAS received call from therapy stating concerns for pt going home alone due to general weakness during eval. This RN NIKOLAS back to room to speak with pt regarding same and pt is in the wheelchair, discharged awaiting transport to car. Pt states 'I will be fine.' She states that family member that is picking her up is only a call away and he could come help her if needed. She also states that her sister can come stay with her later this week. Pt advised that C would be f/u to resume therapy, voices understanding and states that she would like to go home at this time. Pt discharged at this time. SStaten MALIKA CONNOR
== END 2017-11-26 14:47 | disposition home or self-care (01) | DRG 378 ==
LOC: ED 04:13 → PCU 05:15
PROVIDERS: Internal Medicine; Surgery; Admitting Provider Internal Medicine; Emergency Provider Emergency Medicine; Family Provider Internal Medicine; PCP Internal Medicine; Visit Provider Internal Medicine
PROC: 0DJD8ZZ Inspection of Lower Intestinal Tract, Via Natural or Artificial Opening Endoscopic (ICD-10-PCS; CPT 45378; principal; 2017-11-25 13:45)
DX: K92.2 Gastrointestinal hemorrhage, unspecified (principal); D62 Acute posthemorrhagic anemia; I13.0 Hypertensive heart and chronic kidney disease with heart failure and stage 1 through stage 4 chronic kidney disease, or unspecified chronic kidney disease; N17.9 Acute kidney failure, unspecified; M33.10 Other dermatomyositis, organ involvement unspecified; I50.32 Chronic diastolic (congestive) heart failure; K29.70 Gastritis, unspecified, without bleeding; E11.22 Type 2 diabetes mellitus with diabetic chronic kidney disease; N18.3 Chronic kidney disease, stage 3 (moderate); Z79.4 Long term (current) use of insulin; I73.9 Peripheral vascular disease, unspecified; E11.65 Type 2 diabetes mellitus with hyperglycemia; Z79.01 Long term (current) use of anticoagulants; Z87.440 Personal history of urinary (tract) infections; Z86.718 Personal history of other venous thrombosis and embolism; I25.10 Atherosclerotic heart disease of native coronary artery without angina pectoris; Z95.1 Presence of aortocoronary bypass graft; I34.0 Nonrheumatic mitral (valve) insufficiency; I27.20 Pulmonary hypertension, unspecified; E89.0 Postprocedural hypothyroidism; Z86.74 Personal history of sudden cardiac arrest; Z79.82 Long term (current) use of aspirin; Z79.899 Other long term (current) drug therapy
CPT/HCPCS: 36415; 80048; 80053; 82009; 82274; 82962; 83036; 83690; 84439; 84443; 84484; 85025; 85027; 85610; 86850; 86900; 86920; 86922; 88305; 88342; 93005; 97162; 97166; 97802; 99285; J7030; J7040; P9016; P9017; A4216; J3430